=== PATIENT | male | born 1955 | race Caucasian/White ===

== ENCOUNTER → 2018-10-22 | Outpatient (CLI) | payer MEDICARE ==
--- NOTE | 2018-10-22 09:17 | US ---
EXAMINATION TYPE: US kidneys/renal and bladder DATE OF EXAM: 10/22/2018 COMPARISON: Lumbar MRI 12/25/2014 CLINICAL HISTORY: N28.9 DISORDER OF KIDNEY AND URETER. Renal failure, history of renal cysts EXAM MEASUREMENTS: Right Kidney: 11.5 x 5.8 x 5.1 cm Left Kidney: 11.3 x 6.3 x 6.2 cm Right Kidney: 2 exophytic cysts seen lateral mid pole with largest measuring 5.7 x 5.5 x 6.3cm Left Kidney: no hydronephrosis or renal masses seen Bladder: wnl Bilateral Jets seen: no Cystic foci are not clearly simple cystic by ultrasound criteria. This may be due to location. IMPRESSION: Cystic foci associated with the right kidney not clearly simple cystic, however, this may be due to t echnical factors as comparison with prior lumbar MRI suggests stable lesions, consider short interval ultrasound follow-up versus dedicated renal CT or MRI.
== END ==
LOC: RADUSWWP 07:53
PROVIDERS: ATTEND Family Medicine
DX: N28.9 Disorder of kidney and ureter, unspecified (principal)
CPT/HCPCS: 76770

== ENCOUNTER 2020-10-29 05:24 | Inpatient (IN) | payer MEDICARE ==
[2020-10-29] MEDS ORDERED: PANTOPRAZOLE 40 MG/10 ML VIAL IVP STA (05:57)
--- NOTE | 2020-10-29 06:03 | ED ---
General Adult HPI - General Chief complaint: GI Bleed Stated complaint: vomiting blood Time Seen by Provider: 10/29/20 05:40 Source: patient Mode of arrival: ambulatory - History of Present Illness Initial comments: This patient is a 65-year-old man who presents to be evaluated for headache and for vomiting blood. Patient states that for 2 days now he has had a severe headache that he states was combative at the base of his head posteriorly, but he was also having a pain in the retro-orbital area and the maxillary areas bilaterally. Patient states that the pain was severe, constant without worsening or relieving factors until this morning. Patient states that this morning he had some nausea and then vomited and then once she vomited the pain seemed to resolve. Patient stated that when he vomited there was blood, and he has had 5 episodes of vomiting with blood this morning. Onset/Timin -: days(s) Location: head Quality: aching, constant Consistency: constant Improves with: other Worsens with: none Associated Symptoms: headaches, nausea/vomiting Treatments Prior to Arrival: NSAID - Related Data Home Medications Medication Instructions Recorded Confirmed ALPRAZolam [Xanax] 0.25 mg PO BID PRN 07/13/14 01/09/15 Aspirin 81 mg PO DAILY 07/13/14 01/09/15 DULoxetine HCL [Cymbalta] 20 mg PO HS 07/13/14 01/09/15 Omeprazole [PriLOSEC] 20 mg PO AC-BRKFST 07/13/14 01/09/15 Tamsulosin HCl [Flomax] 0.4 mg PO BID 07/13/14 01/09/15 Testosterone Cypionate 0 mg IM Q14D 07/13/14 01/09/15 [Depo-Testosterone] lisinopriL [Zestril] 10 mg PO HS 07/13/14 01/09/15 metFORMIN HCL 500 mg PO DAILY 01/05/15 01/09/15 Prasterone (Dhea) [Dhea 25] 1 tab PO BID 01/09/15 01/09/15 Previous Rx's Medication Instructions Recorded Albuterol Inhaler (Mhu) [Ventolin 1 - 2 puff INHALATION Q4-6H PRN #1 07/13/14 Hfa Inhaler (Mhu)] inhaler Allergies Allergy/AdvReac Type Severity Reaction Status Date / Time No Known Allergies Allergy Verified 10/29/20 05:33 Review of Systems ROS Statement: Those systems with pertinent positive or pertinent negative responses have been documented in the HPI. ROS Other: All systems not noted in ROS Statement are negative. Constitutional: Denies: fever, chills, weakness Eyes: Reports: as per HPI, eye pain. Denies: vision change ENT: Reports: as per HPI, dental pain. Denies: ear pain, hearing loss, epistaxis Respiratory: Denies: cough, dyspnea, wheezes Cardiovascular: Denies: chest pain, palpitations Gastrointestinal: Reports: abdominal pain (Epigastric pain), nausea, vomiting. Denies: diarrhea, constipation Genitourinary: Denies: dysuria Musculoskeletal: Denies: back pain Skin: Denies: rash Neurological: Reports: as per HPI, headache. Denies: weakness, numbness, p aresthesias Hematological/Lymphatic: Denies: easy bleeding Past Medical History Past Medical History: GERD/Reflux, Hypertension Additional Past Medical History / Comment(s): CHRONIC BACK ISSUES History of Any Multi-Drug Resistant Organisms: None Reported Past Surgical History: Back Surgery, Bariatric Surgery, Orthopedic Surgery Additional Past Surgical History / Comment(s): LEFT ANKLE, LEFT HIP, LAP BAND AND REMOVAL,GASTRIC SLEEVE, LEFT KNEE ARTHROSCOPY Past Psychological History: Anxiety, Depression Smoking Status: Former smoker Past Alcohol Use History: None Reported Past Drug Use History: None Reported - Past Family History Father Additional Family Medical History / Comment(s): HEART PROBLEMS AT AGE 58 Mother Additional Family Medical History / Comment(s): AT AGE 82 Course Vital Signs 10/29/20 10/29/20 10/29/20 05:29 06:00 06:15 Temperature 97.5 F L Pulse Rate 70 134 H 121 H Respiratory 19 20 20 Rate Blood Pressure 94/65 79/61 92/64 O2 Sat by Pulse 96 96 94 L Oximetry 10/29/20 10/29/20 10/29/20 06:30 06:45 07:00 Temperature Pulse Rate 120 H 116 H 121 H Respiratory 20 20 20 Rate Blood Pressure 89/61 82/47 82/47 O2 Sat by Pulse 96 95 96 Oximetry 10/29/20 07:48 Temperature 98.2 F Pulse Rate Respiratory Rate Blood Pressure O2 Sat by Pulse Oximetry EKG Findings - EKG Results: EKG: interpreted by ERMD, sinus rhythm, normal axis, normal QRS, normal ST/T EKG shows: tachycardia (Rate 132 bpm) Medical Decision Making - Lab Data Result diagrams: 10/29/20 06:06 10/29/20 06:06 Lab Results 10/29/20 10/29/20 10/29/20 Range/Units 06:06 06:06 06:06 WBC 21.3 H (3.8-10.6) k/uL RBC 5.70 (4.30-5.90) m/uL Hgb 16.6 (13.0-17.5) gm/dL Hct 50.3 (39.0-53.0) % MCV 88.3 (80.0-100.0) fL MCH 29.1 (25.0-35.0) pg MCHC 33.0 (31.0-37.0) g/dL RDW 14.6 (11.5-15.5) % Plt Count 240 (150-450) k/uL MPV 9.0 Neutrophils % 84 % Lymphocytes % 9 % Monocytes % 5 % Eosinophils % 1 % Basophils % 1 % Neutrophils # 17.9 H (1.3-7.7) k/uL Lymphocytes # 1.9 (1.0-4.8) k/uL Monocytes # 1.1 H (0-1.0) k/uL Eosinophils # 0.2 (0-0.7) k/uL Basophils # 0.1 (0-0.2) k/uL PT 10.5 (9.0-12.0) sec INR 1.0 (<1.2) APTT 23.1 (22.0-30.0) sec Sodium 138 (137-145) mmol/L Potassium 3.8 (3.5-5.1) mmol/L Chloride 95 L (98-107) mmol/L Carbon Dioxide 30 (22-30) mmol/L Anion Gap 13 mmol/L BUN 54 H (9-20) mg/dL Creatinine 1.54 H (0.66-1.25) mg/dL Est GFR (CKD-EPI)AfAm 54 (>60 ml/min/1.73 sqM) Est GFR (CKD-EPI)NonAf 46 (>60 ml/min/1.73 sqM) Glucose 153 H (74-99) mg/dL Plasma Lactic Acid Rich (0.7-2.0) mmol/L Calcium 9.1 (8.4-10.2) mg/dL Total Bilirubin 0.5 (0.2-1.3) mg/dL AST 18 (17-59) U/L ALT 14 (4-49) U/L Alkaline Phosphatase 51 (38-126) U/L Troponin I (0.000-0.034) ng/mL Total Protein 6.4 (6.3-8.2) g/dL Albumin 3.8 (3.5-5.0) g/dL 10/29/20 10/29/20 Range/Units 06:06 06:06 WBC (3.8-10.6) k/uL RBC (4.30-5.90) m/uL Hgb (13.0-17.5) gm/dL Hct (39.0-53.0) % MCV (80.0-100.0) fL MCH (25.0-35.0) pg MCHC (31.0-37.0) g/dL RDW (11.5-15.5) % Plt Count (150-450) k/uL MPV Neutrophils % % Lymphocytes % % Monocytes % % Eosinophils % % Basophils % % Neutrophils # (1.3-7.7) k/uL Lymphocytes # (1.0-4.8) k/uL Monocytes # (0-1.0) k/uL Eosinophils # (0-0.7) k/uL Basophils # (0-0.2) k/uL PT (9.0-12.0) sec INR (<1.2) APTT (22.0-30.0) sec Sodium (137-145) mmol/L Potassium (3.5-5.1) mmol/L Chloride (98-107) mmol/L Carbon Dioxide (22-30) mmol/L Anion Gap mmol/L BUN (9-20) mg/dL Creatinine (0.66-1.25) mg/dL Est GFR (CKD-EPI)AfAm (>60 ml/min/1.73 sqM) Est GFR (CKD-EPI)NonAf (>60 ml/min/1.73 sqM) Glucose (74-99) mg/dL Plasma Lactic Acid Rich 3.3 H* (0.7-2.0) mmol/L Calcium (8.4-10.2) mg/dL Total Bilirubin (0.2-1.3) mg/dL AST (17-59) U/L ALT (4-49) U/L Alkaline Phosphatase (38-126) U/L Troponin I <0.012 (0.000-0.034) ng/mL Total Protein (6.3-8.2) g/dL Albumin (3.5-5.0) g/dL Disposition Clinical Impression: Gastrointestinal hemorrhage Disposition: ADMITTED IP TO THIS HOSP Condition: Serious Is patient prescribed a controlled substance at d/c from ED?: No Referrals: Joesph Loera MD [Primary Care Provider] - 1-2 days
[2020-10-29] MEDS ORDERED: SODIUM CHLORIDE 0.9% 500 ML 250 ML IV STA (06:11)
--- NOTE | 2020-10-29 06:33 | CT ---
EXAMINATION TYPE: CT brain wo con DATE OF EXAM: 10/29/2020 HISTORY: severe GASTON, went away after vomiting blood CT DLP: 1177 mGycm. Automated Exposure Control for Dose Reduction was Utilized. TECHNIQUE: CT scan of the head is performed without contrast. COMPARISON: None. FINDINGS: There is no acute intracranial hemorrhage or midline shift identified. There is mild to m oderate diffuse ventricular and sulcal prominence consistent with diffuse age-related cerebral atroph y. Some reticular asymmetry is noted. There is mild to moderate low-attenuation in the periventricul ar white matter consistent with chronic small vessel ischemic change. The globes are intact and the visualized sinuses are clear. Extensive surgical change to thoracolumbar spine noted on localizer. IMPRESSION: No acute intracranial hemorrhage or midline shift. There is mild to moderate diffuse ag e-related cerebral atrophy and chronic small vessel ischemic change noted.
[2020-10-29 06:38] LABS: Basophils # (A) 0.1 k/uL (0-0.2); Basophils % (A) 1 %; Eosinophils # (A) 0.2 k/uL (0-0.7); Eosinophils % (A) 1 %; HCT 50.3 % (39.0-53.0); HGB 16.6 gm/dL (13.0-17.5); Lymphocytes # (A) 1.9 k/uL (1.0-4.8); Lymphocytes % (A) 9 %; MCH 29.1 pg (25.0-35.0); MCV 88.3 fL (80.0-100.0); Monocytes # (A) 1.1 k/uL (0-1.0); Monocytes % (A) 5 %; Neutrophils # (A) 17.9 k/uL (1.3-7.7); Neutrophils % (A) 84 %; Platelet Count 240 k/uL (150-450); RDW 14.6 % (11.5-15.5); WBC 21.3 k/uL (3.8-10.6)
--- NOTE | 2020-10-29 06:46 | XR ---
EXAMINATION TYPE: XR chest 1V portable DATE OF EXAM: 10/29/2020 COMPARISON: Chest x-ray July 13, 2014 HISTORY: Severe chest pain since Thursday. TECHNIQUE: Single AP portable frontal upright view of the chest is obtained. FINDINGS: There is chronic right pleural changes without suspicious new focal air space opacity, ple ural effusion, or pneumothorax seen. The cardiac silhouette size is stable and upper limits of riccardo l. Surgical change of the thoracolumbar spine is redemonstrated. IMPRESSION: Chronic changes without acute pulmonary process.
[2020-10-29 06:51] LABS: Partial Thromboplastin Time 23.1 sec (22.0-30.0); Prothrombin Time 10.5 sec (9.0-12.0)
[2020-10-29 06:52] LABS: Albumin 3.8 g/dL (3.5-5.0); Calcium 9.1 mg/dL (8.4-10.2); Potassium 3.8 mmol/L (3.5-5.1); Total Bilirubin 0.5 mg/dL (0.2-1.3); Total Protein 6.4 g/dL (6.3-8.2)
--- NOTE | 2020-10-29 06:54 | CT ---
EXAMINATION TYPE: CT angio head neck DATE OF EXAM: 10/29/2020 HISTORY: severe GASTON, went away after vomiting blood COMPARISON: None. CT DLP: 927.9 mGycm. Automated Exposure Control for Dose Reduction was Utilized. TECHNIQUE: CTA scan of the head and neck are performed with IV Contrast, patient injected with 65 mL of Isovue 370, axial images are obtained, coronal and sagittal reformatted images are reviewed. Thre e-D reconstructed images are created on an independent workstation and reviewed. FINDINGS: Carotid/Vascular Structures: Bovine-type arch. Normal origin right common carotid artery from right b rachiocephalic artery . Mild calcified plaque at origin. No significant plaque or stenosis in common or internal carotid arteries bilaterally. No significant plaque or stenosis at the carotid bulb level . Patent external carotid arteries bilaterally without significant plaque or stenosis. Codominant vertebrobasilar system filling basilar artery. No significant plaque or stenosis. Patent r ight posterior communicating artery. Hypoplastic left posterior indicating artery. No significant shanique que or stenosis. Likely small caliber but patent anterior communicating artery. No significant plaque or stenosis. Other: Dilated main pulmonary artery of 3.2 cm, CT findings consistent with underlying pulmonary negro ry hypertension. Long segment fusion hardware in the thoracic spine noted. IMPRESSION: No significant stenosis in common or internal carotid arteries bilaterally. No significa nt stenosis or aneurysm at level point lay [place] of [place].
--- NOTE | 2020-10-29 07:24 | CT ---
EXAMINATION TYPE: CT abdomen pelvis w con DATE OF EXAM: 10/29/2020 COMPARISON: None. HISTORY: Epigastric pain, went away after vomiting blood CT DLP: 2195.5 mGycm, Automated Exposure Control for Dose Reduction was Utilized. CONTRAST: CT scan of the abdomen and pelvis is performed without oral but with IV Contrast, patient injected wi th 65 mL of Isovue 370. FINDINGS: LUNG BASES: Heart size mildly enlarged.. LIVER/GB: Gallbladder has distended margins and is dilated without surrounding fat stranding. Finding may be products of fasting state. PANCREAS: No significant abnormality is seen. SPLEEN: No significant abnormality is seen. ADRENALS: No significant abnormality is seen. KIDNEYS: There are thin-walled exophytic simple cysts from the upper to mid pole right kidney posteri julio. No excretion seen but no hydronephrosis noted bilaterally. Symmetric cortical medullary uptake noted. BOWEL: Suboptimal evaluation of bowel without enteric contrast. Surgical changes from gastric sleeve procedure. Moderate size hiatal hernia with moderate concentric wall thickening distal esophagus. Cor relate clinically. Consider follow-up direct visualization to rule out distal esophageal neoplasm. No suspicious small or large bowel dilatation. PROSTATE/SEMINAL VESICLES: Enlarged prostate consistent with BPH. Surgical clips anterior aspect of p rostate likely between inferior bladder and prostate. LYMPH NODES: No greater than 1cm abdominal or pelvic lymph nodes are appreciated. OSSEOUS STRUCTURES: Metallic hardware from left hip arthroplasty causes streak artifact limiting eval uation of pelvic structures. There is surgical change to lower lumbar spine L3-L5 levels. Grade 1 ant erolisthesis L4 on L5. Grade 1 retrolisthesis L2 on L3. Extensive surgical change to the thoracic spi ne. Long segment fusion hardware. Underlying scoliotic curvature. OTHER: Moderate-sized fat-containing bilateral inguinal hernias. Small amount of left scrotal fluid. IMPRESSION: No bowel obstruction. No acute findings are evident. Nonemergent follow-up distal esophag us.
[2020-10-29] MEDS ORDERED: SODIUM CHLORIDE 0.9% 1,000 ML IV STA (07:42)
[2020-10-29] MEDS ORDERED: SODIUM CHLORIDE 0.9% 500 ML 500 ML IV STA (07:42)
[2020-10-29] MEDS ORDERED: MORPHINE SULFATE 4 MG/ML SYRINGE IV PRN (07:49)
[2020-10-29] MEDS ORDERED: ONDANSETRON 4 MG/2 ML VIAL IVP PRN (07:49)
[2020-10-29] MEDS ORDERED: NALOXONE 0.4 MG/ML 1 ML VIAL IV PRN (07:49)
[2020-10-29 08:37] LABS: HCT 44.7 % (39.0-53.0); HGB 15.3 gm/dL (13.0-17.5); MCH 30.1 pg (25.0-35.0); MCHC 34.2 g/dL (31.0-37.0); MCV 88.1 fL (80.0-100.0); Mean Platelet Volume 9.3; Platelet Count 241 k/uL (150-450); RBC 5.07 m/uL (4.30-5.90); RDW 14.7 % (11.5-15.5); WBC 18.5 k/uL (3.8-10.6)
[2020-10-29] MEDS ORDERED: PANTOPRAZOLE 40 MG/10 ML VIAL IV SCH (09:00)
[2020-10-29] MEDS ORDERED: SODIUM CHLORIDE 0.9% 1,000 ML IV ONE (09:12)
[2020-10-29] MEDS ORDERED: IV FLUID CONTINUATION 1,000 ML IV ONE ×2 (09:29→10:08)
[2020-10-29] MEDS ORDERED: PHENYLEPHRINE-0.9% NACL SYG 1,000 MCG/10 ML SYRINGE ONE (09:35)
[2020-10-29] MEDS ORDERED: PROPOFOL 10 MG/ML 20 ML VIAL IV ONE (09:35)
--- NOTE | 2020-10-29 10:37 | P.PCN ---
Date of Procedure: 10/29/20 Procedure(s) Performed: BRIEF HISTORY: Patient is a 65-year-old, pleasant, male in the hospital with multiple episodes of hematemesis since 8 PM last night. He had at least 5 episodes since being in the ER with approximately 100-200 mL of fresh blood with clots. History of gastric 60 surgery in the past. Patient has been taking Motrin on a regular basis for chronic back pain and severe headaches. He is complaining of some epigastric discomfort. CT angiography was negative. He scheduled for an emergent upper endoscopy in the emergency room PROCEDURE PERFORMED: Esophagogastroduodenoscopy with injection epinephrine and Endo Clip placement PREOPERATIVE DIAGNOSIS: Acute upper GI bleed. IV sedation per anesthesia. PROCEDURE: After informed consent was obtained, the patient was brought into the endoscopy unit. IV sedation was administered by Anesthesia under continuous monitoring. Initially the Olympus GIF-140 video therapeutic endoscope was inserted into the mouth. Esophagus intubated without any difficulty. It was gradually advanced into the stomach and duodenum and carefully examined. There were large clots noted in the stomach and in the bulb of the duodenum that was thoroughly irrigated. The bulb and the second part of the duodenum appeared normal. The scope at this time was withdrawn to the stomach, adequately insufflated with air, and upon careful examination, mucosa of the antrum appeared normal. There was evidence of gastric sleeve surgery noted and the patient as well as the gastric body appeared normal. He was a moderate size hiatal hernia noted. The scope was then withdrawn into the esophagus. GE junction was located at 35 cm from the incisors. There was some fresh blood noted in the distal esophagus where there was a large circumferential ulceration identified with a clot noted. There is an actively oozing noted underneath the clot. Irrigation was performed. A small visible vessel was noted at the clock position and this time 10 mL of 1 in 10,000 injection epinephrine was injected and hemostasis was achieved. 70 2 endoclips were placed on the visible vessel and adequate hemostasis was achieved . The rest of esophagus appeared normal and the patient tolerated the procedure IMPRESSION: 1. Large circumferential ulceration the distal esophagus at 25 cm from the incisors with a visible vessel and a large clot with active bleeding status post injection epinephrine followed by Endo Clip placement with good hemostasis. 2. Moderate size hiatal hernia. 3. Evidence of gastric sleeve surgery RECOMMENDATIONS: The findings of this examination were discussed with the patient as well as his family. At this time he will be continued on IV Protonix 40 mg every 12 hours. NG tube is in place. CBC every 6 hours. Continue fluid resuscitation..
--- NOTE | 2020-10-29 11:11 | CONS ---
CONSULTATION DATE OF DICTATION: 10/29/2020 REASON FOR CONSULTATION: Acute upper gastrointestinal bleed. HISTORY OF PRESENT ILLNESS: The patient is a 65-year-old pleasant white male came to the emergency room complaining of 3 episodes of hematemesis that started at 8 p.m. last night. The patient says that he had some headache and chronic back pain. He has been taking Motrin on a regular basis. Yesterday morning he episode of black tarry stools. Subsequently yesterday evening he had an episode of hematemesis and he threw up about 200 mL of bright red blood. Subsequently he had a couple more episodes through the night and he came to the emergency room early this morning at 5 o'clock after having another 5 episodes of bright red hematemesis. He denies any chest pain. He has been having some indigestion and chest discomfort for the last 2 weeks duration. No prior history of peptic ulcer disease. He takes Motrin on a regular basis. He has prior history of gastric sleeve surgery several years ago. His initial hemoglobin was 16 subsequently dropped to 15 g/dL. The patient is not on any anticoagulation other than aspirin. PAST MEDICAL HISTORY: Significant for hypertension, hyperlipidemia, gastroesophageal reflux disease, anxiety, depression, and diabetes mellitus. MEDICATIONS: Medications at home include Xanax, aspirin, Cymbalta, Prilosec, Flomax, Depo- Testosterone, Zestril, metformin, and DHEA. ALLERGIES: None. PAST SURGICAL HISTORY: Gastric sleeve surgery, back surgery, knee arthroplasty. FAMILY HISTORY: Father coronary artery disease and mother at age 82. REVIEW OF SYSTEMS: CARDIOPULMONARY: He denies any chest pain or shortness of breath, GENITOURINARY: No dysuria or hematuria. MUSCULOSKELETAL: Unremarkable other than severe chronic back pain. NEUROLOGY: Unremarkable. Does complain of chronic headaches. ENT/VISION: Unremarkable. CONSTITUTIONAL: No recent weight loss. No fever, chills, night sweats. HEMATOLOGY: Unremarkable. PSYCHIATRIC: Unremarkable other than anxiety, depression. CONSTITUTIONAL: No recent weight loss. PHYSICAL EXAMINATION: He appears comfortable, but is hemodynamically unstable. Pulse rate is 134, blood pressure 94/65 and afebrile. HEENT EXAMINATION: Unremarkable. Conjunctivae pink. Sclerae anicteric. Oral cavity no lesions. NECK: No JVD or lymph node enlargement. CHEST: Was clear to auscultation. HEART: Regular rate and rhythm. ABDOMEN: Soft. Bowel sounds are positive. No organomegaly. EXTREMITIES: No pedal edema. NEURO: He is alert and oriented x3. No focal deficits. The patient did have a CTA done in the ER which was unremarkable. He also had an abdominal CT scan that showed evidence of hiatal hernia, otherwise it was unremarkable. LABS: At the time of admission to the the hospital, WBC 21.3, hemoglobin 16 and dropped to 15.3, platelets normal. PT/INR is within normal limits. BUN is 54, creatinine 1.54. Plasma lactic acid was 3.3. AST, ALT, T-bilirubin and alkaline phosphatase are within normal limits. IMPRESSION: 1. Acute upper gastrointestinal bleed with several episodes of hematemesis since 8 p.m. last night. Patient presently hemodynamically stable with tachycardia and hypertension being resuscitated with fluids. Hemoglobin was 16 dropped to 15 g/dL. He has been taking Motrin on a regular basis for chronic back pain and severe headaches. Rule out peptic ulcer disease. 2. History of gastric sleeve surgery. 3. Hypertension. 4. Hyperlipidemia. 5. History of diabetes mellitus. RECOMMENDATIONS: 1. Continue with fluid resuscitation. 2. IV Protonix 40 mg q.12 hours. 3. CBC every 6 hours and transfuse if needed. 4. We will proceed with an emergency upper endoscopy at the bedside. I had a lengthy discussion with the patient as well as his daughter who is at the bedside about the risks, benefits and complications. Thank you for this consultation. FATOUMATA / ALEXANDERN: [id number] /
--- NOTE | 2020-10-29 11:31 | XR ---
EXAMINATION TYPE: XR chest 1V portable DATE OF EXAM: 10/29/2020 CLINICAL HISTORY: NG tube placement . TECHNIQUE: Single AP portable frontal view of the chest is obtained. COMPARISON: Chest x-ray and CT abdomen and pelvis from earlier today FINDINGS: Metallic hardware from a long segment fusion in the thoracic spine redemonstrated. New dimas ogastric tube cannot be clearly seen below diaphragm likely coiled in hiatal hernia. Surgical change s from gastric sleeve noted on recent CT. There is hiatal hernia with suspicious distal esophageal wa ll thickening noted. Follow-up advised. Lungs remain clear. Cardiac silhouette size is stable and upper limits of normal. IMPRESSION: As above
[2020-10-29] MEDS: HYDROmorphone 0.5 MG/0.5 ML SYRINGE IVP PRN ×3 (13:32→22:16)
[2020-10-29 15:56] LABS: HCT 40.3 % (39.0-53.0); HGB 12.8 gm/dL (13.0-17.5); MCH 28.6 pg (25.0-35.0); MCHC 31.7 g/dL (31.0-37.0); MCV 90.1 fL (80.0-100.0); Platelet Count 219 k/uL (150-450); RBC 4.47 m/uL (4.30-5.90); RDW 15.2 % (11.5-15.5); WBC 19.3 k/uL (3.8-10.6)
[2020-10-29] MEDS ORDERED: DIAZEPAM 5 MG/ML 2 ML INJ IVP ONE (21:00)
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
[2020-10-29 22:00] LABS: HCT 38.1 % (39.0-53.0); HGB 11.9 gm/dL (13.0-17.5); MCH 28.2 pg (25.0-35.0); MCHC 31.3 g/dL (31.0-37.0); MCV 90.1 fL (80.0-100.0); Mean Platelet Volume 8.9; Platelet Count 193 k/uL (150-450); RBC 4.23 m/uL (4.30-5.90); RDW 15.3 % (11.5-15.5)
[2020-10-29] MEDS: PANTOPRAZOLE 40 MG/10 ML VIAL IV SCH (22:16)
[2020-10-29] MEDS ORDERED: diazePAM 2 MG TAB PO STA (23:18)
[2020-10-30 00:11] LABS: HCT 33.8 % (39.0-53.0); HGB 11.7 gm/dL (13.0-17.5); MCH 30.3 pg (25.0-35.0); MCHC 34.6 g/dL (31.0-37.0); MCV 87.7 fL (80.0-100.0); Platelet Count 180 k/uL (150-450); RBC 3.86 m/uL (4.30-5.90); WBC 15.7 k/uL (3.8-10.6)
[2020-10-30 08:01] LABS: HCT 33.6 % (39.0-53.0); HGB 11.3 gm/dL (13.0-17.5); MCH 29.8 pg (25.0-35.0); MCHC 33.7 g/dL (31.0-37.0); MCV 88.6 fL (80.0-100.0); Mean Platelet Volume 8.8; Platelet Count 162 k/uL (150-450); RBC 3.79 m/uL (4.30-5.90); RDW 14.9 % (11.5-15.5); WBC 12.6 k/uL (3.8-10.6)
[2020-10-30 08:05] LABS: Calcium 8.6 mg/dL (8.4-10.2); Potassium 3.2 mmol/L (3.5-5.1)
[2020-10-30] MEDS ORDERED: BUTALB/APAP/CAFF 50-325-40MG TAB PO PRN (08:53)
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
[2020-10-30] MEDS ORDERED: POTASSIUM CHLORIDE ER 20 MEQ TAB.ER PO STA (10:54)
[2020-10-30] MEDS: PANTOPRAZOLE 40 MG/10 ML VIAL IV SCH ×2 (11:40→21:13)
--- NOTE | 2020-10-30 11:52 | P.PN ---
Subjective Progress Note Date: 10/30/20 Principal diagnosis: Acute upper gastrointestinal bleed Since 65-year-old pleasant white male who came to the emergency room complaining of 3 episodes of hematemesis that started 8 PM Thursday evening. The patient sitting on his severe headache and chronic back pain. He has been taking significant amounts of Motrin on a regular basis. Thursday morning he noticed black tarry stools and subsequently yesterday was having several episodes of hematemesis with up to approximately 200, also bright red blood. Yesterday he underwent an upper endoscopy which revealed a large circumferential ulceration in the distal esophagus at 25 cm from the incisors with a visible vessel and lar ge clot with active bleeding status post injection of epinephrine and Endo Clip placement. Moderate size hiatal hernia and evidence of gastric sleeve surgery. He also had an NG tube placed which was removed yesterday evening he stated approximately at 10:00. He is currently denying any abdominal pain, he has had no further episodes of emesis, no further bowel movements and is tolerating full liquid diet. Hemoglobin is stable at 11.3 Objective - Vital Signs Vital signs: Vital Signs Temp 97.5 F L 10/30/20 08:00 Pulse 95 10/30/20 08:00 Resp 16 10/30/20 08:00 BP 99/53 10/30/20 08:00 Pulse Ox 95 10/30/20 08:00 Intake & Output 10/29/20 10/30/20 10/30/20 18:59 06:59 18:59 Intake Total 300 207 Balance 300 207 Weight 97 kg Intake: IV 300 Oral 207 Other: Voiding Method Toilet # Voids 2 # Bowel Movements 0 - Exam General appearance: The patient is alert, oriented, appears in no acute distress. HET: Head is normocephalic and atraumatic. Conjunctiva pink. Sclera anicteric. Neck: Supple without lymphadenopathy. Abdomen: Soft, nontender, nondistended with bowel sounds. No guarding or rig idity. Extremities: Normal skin color and turgor. No pedal edema Skin: No rashes, no jaundice Neurological: No focal deficits. Alert and oriented 3. - Labs CBC & Chem 7: 10/30/20 06:41 10/30/20 06:41 Labs: Abnormal Lab Results - Last 24 Hours (Table) 10/29/20 10/29/20 10/29/20 Range/Units 15:20 21:22 23:48 WBC 19.3 H 17.0 H 15.7 H (3.8-10.6) k/uL RBC 4.23 L 3.86 L (4.30-5.90) m/uL Hgb 12.8 L 11.9 L 11.7 L (13.0-17.5) gm/dL Hct 38.1 L 33.8 L (39.0-53.0) % Potassium (3.5-5.1) mmol/L Carbon Dioxide (22-30) mmol/L BUN (9-20) mg/dL Creatinine (0.66-1.25) mg/dL 10/30/20 10/30/20 Range/Units 06:41 06:41 WBC 12.6 H (3.8-10.6) k/uL RBC 3.79 L (4.30-5.90) m/uL Hgb 11.3 L (13.0-17.5) gm/dL Hct 33.6 L (39.0-53.0) % Potassium 3.2 L (3.5-5.1) mmol/L Carbon Dioxide 34 H (22-30) mmol/L BUN 48 H (9-20) mg/dL Creatinine 1.30 H (0.66-1.25) mg/dL Assessment and Plan (1) Acute upper gastrointestinal bleeding Narrative/Plan: This is a gentleman who presented to the emergency department with an acute upper gastrointestinal bleed with several episodes of hematemesis since 8 PM Thursday evening. The patient presented hemodynamically stable with tachycardia in height hypotension that was being resuscitated with fluids. Hemoglobin was 16 intraoperative 15 initially, today is 11.3. The patient has been taking Motrin on a regular basis for chronic back pain and severe headaches. He underwent an upper endoscopy yesterday which revealed a large circumferential ulceration in the distal esophagus at 25 cm from the incisors with a visible ve ssel and large clot with active bleeding status post injection of epinephrine and Endo Clip placement. Moderate size hiatal hernia and evidence of gastric sleeve surgery. Current Visit: Yes Status: Acute Code(s): K92.2 - GASTROINTESTINAL HEMORRHAGE, UNSPECIFIED SNOMED Code(s): 58043704 Plan: 1. Continue symptomatic and supportive care 2. Continue full liquid diet 3. Continue to monitor H&H 4. Continue to monitor for signs of GI bleed 5. The patient will need follow-up with gastroenterology for repeat upper endoscopy to evaluate healing of ulcer in 4-6 weeks 6. Continue Protonix 40 mg twice a day Thank you for this consultation, we will continue to follow. Dr. Aren Funez I agree with the dictator's note, documented as a scribe by Zee Zavala.
[2020-10-30 13:53] VITALS: BMI 29.0
[2020-10-30] MEDS ORDERED: BENZOCAINE/MENTHOL LOZENG 1 EACH LOZENGE MUCOUS MEM PRN (14:29)
[2020-10-30] MEDS ORDERED: ALPRAZolam 0.25 MG TAB PO PRN (15:37)
[2020-10-30] MEDS ORDERED: HYDROcodone/APAP 10-325MG 1 EACH TAB PO PRN (15:37)
[2020-10-30] MEDS: methocarbamoL 750 MG TAB PO SCH ×2 (16:31→23:47)
[2020-10-30] MEDS: LEVOTHYROXINE 100 MCG TAB PO SCH (16:31)
--- NOTE | 2020-10-30 16:34 | MR ---
EXAMINATION TYPE: MR brain wo/w con DATE OF EXAM: 10/30/2020 COMPARISON: CT brain 10/29/2020 HISTORY: Severe headaches TECHNIQUE: Multiplanar, multisequence images of the brain and brainstem is performed without and with IV contras t, utilizing 9.5 mL intravenous Gadavist . FINDINGS: Diffusion weighted images demonstrate no evidence of a recent infarct or other diffusion ab normality. There is no extra-axial fluid.. Periventricular confluent and scattered hyperintensities are present and inversion recovery T2-weighted sequences, approximately 50 lesions are present. 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 The brain volume is age appropriate. Midline structures demonstrate normal morphology. The craniocervical junction appears within normal limits. Post contrast images demonstrate no abnormal enhancement. The dural venous sinuses appear pa tent. The visualized sinuses are remarkable for mucoperiosteal thickening in the maxillary sinuses, e thmoid air cells and the globes are intact. IMPRESSION: Nonspecific white matter demyelination. No restricted diffusion to suggest subacute ische sagar.
[2020-10-30] MEDS ORDERED: TAMSULOSIN 0.4 MG CAP.ER.24H PO SCH (21:00)
[2020-10-30] MEDS: DULoxetine HCL 60 MG CAPSULE.DR PO SCH (21:13)
[2020-10-30] MEDS: HYDROmorphone 0.5 MG/0.5 ML SYRINGE IVP PRN (21:13)
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
[2020-10-31 03:46] VITALS: RESP 18
[2020-10-31 06:07] LABS: Glucose,Whole Blood 99 mg/dL (75-99)
[2020-10-31] MEDS: LEVOTHYROXINE 100 MCG TAB PO SCH (06:15)
[2020-10-31] MEDS ORDERED: NON FORMULARY DRUG (Sildenafil Citrate [Sildenafil Citrate] 100 MG Tablet) PO SCH (07:30)
[2020-10-31] MEDS ORDERED: LEVOTHYROXINE IVP 100 MCG/5 ML VIAL IV SCH (09:00)
[2020-10-31 09:50] LABS: HCT 30.1 % (39.0-53.0); HGB 10.3 gm/dL (13.0-17.5); MCH 30.3 pg (25.0-35.0); MCHC 34.3 g/dL (31.0-37.0); MCV 88.4 fL (80.0-100.0); Mean Platelet Volume 8.8; Platelet Count 150 k/uL (150-450); RDW 15.1 % (11.5-15.5)
[2020-10-31] MEDS: DULoxetine HCL 60 MG CAPSULE.DR PO SCH (09:51)
[2020-10-31] MEDS: PANTOPRAZOLE 40 MG/10 ML VIAL IV SCH (09:51)
[2020-10-31] MEDS: methocarbamoL 750 MG TAB PO SCH (09:52)
[2020-10-31 10:00] LABS: Calcium 8.9 mg/dL (8.4-10.2); Potassium 3.8 mmol/L (3.5-5.1)
--- NOTE | 2020-10-31 11:16 | CDI ---
Documentation Clarification Form Date: 10/31/2020 11:05:20 AM From: Avril Rust CCS, CCDS Admit Date: 10/29/2020 07:51:00 AM Patient Name: Jose Krause Visit Number: [id number] Discharge Date: ATTENTION: The Clinical Documentation Specialists (CDI) and [facility] Coding Staff appreciate your assistance in clarifying documentation. Please respond to the clarification below the line at the bottom and electronically sign. The CDI & [facility] Coding staff will review the response and follow-up if needed. Please note: Queries are made part of the Legal Health Record. If you have any questions, please contact the author of this message via ITS. Dr. Dada Khan: There is documentation of tachycardia, hypotension and the need for fluid resuscitation. Additional clarification is requested. History/Risk Factors per the 10/29 History & Physical: GERD, Hypertension, Chronic back pain, Headaches, Anxiety, Depression, Former smoker, Back Surgery, Bariatric Surgery. Clinical Indicators: Per the 10/29 ED: Presented for evaluation of vomiting blood and headaches x2 days with nausea. ED Clinical Impression: Gastrointestinal Hemorrhage 10/29 VS: T 97.5, P 70 - 134, R 19 - 20, BP 94/65 - 79/61; PO 96 RA, BMI: 29.5 10/29 LAB: WBC 21.3, Neut 17.9, [place] 1.1, Cl 95, BUN 54, Cr 1.54, Glucose 153, Lactic Acid 3.3. Treatment 10/29: IV Protonix, IV fluid 250 mls @ 1,000 mls/hr q15M, IV fluid 500 mls @ 1000 mls/hr q30M, IV fluid 1,000 mls @ 130 mls/hr q7H, IV Dilaudi 0.5 mg q3H, IV Zofran, IV fluid 1,000 mls @ 999 mls/hr q1H, IV Protonix. Typed & Crossed for possible transfusion. Can you please further clarify any condition(s) related to the above findings: [ ] Dehydration [ ] Acute Kidney Failure [ ] Other, please specify [ ] Unable to determine (Template Last Revised: September 2020) Unable to determine MTDD
[2020-10-31 12:00] VITALS: BP 95/49; PULSE 75; TEMP 96
--- NOTE | 2020-10-31 13:55 | P.PN ---
Subjective Progress Note Date: 10/31/20 Principal diagnosis: Acute upper gastrointestinal bleed Since 65-year-old pleasant white male who came to the emergency room complaining of 3 episodes of hematemesis that started 8 PM Thursday evening. The patient sitting on his severe headache and chronic back pain. He has been taking significant amounts of Motrin on a regular basis. Thursday morning he noticed black tarry stools and subsequently yesterday was having several episodes of hematemesis with up to approximately 200, also bright red blood. Yesterday he underwent an upper endoscopy which revealed a large circumferential ulceration in the distal esophagus at 25 cm from the incisors with a visible vessel and lar ge clot with active bleeding status post injection of epinephrine and Endo Clip placement. Moderate size hiatal hernia and evidence of gastric sleeve surgery. He is currently denying any abdominal pain, he has had no further episodes of emesis, reports having a black bowel movement this morning, and is tolerating full liquid diet. Objective - Vital Signs Vital signs: Vital Signs Temp 98 F 10/31/20 08:00 Pulse 74 10/31/20 08:00 Resp 18 10/31/20 08:00 BP 94/54 10/31/20 08:00 Pulse Ox 95 10/31/20 08:00 Intake & Output 10/30/20 10/31/20 10/31/20 18:59 06:59 18:59 Intake Total 982 118 Balance 982 118 Weight 97 kg 98.5 kg Intake: Oral 982 118 Other: Voiding Method Toilet Toilet # Voids 1 1 # Bowel Movements 0 - Exam General appearance: The patient is alert, oriented, appears in no acute distress. HET: Head is normocephalic and atraumatic. Conjunctiva pink. Sclera anicteric. Neck: Supple without lymphadenopathy. Abdomen: Soft, nontender, nondistended with bowel sounds. No guarding or rigidity. Extremities: Normal skin color and turgor. No pedal edema Skin: No rashes, no jaundice Neurological: No focal deficits. Alert and oriented 3. - Labs CBC & Chem 7: 10/31/20 09:06 10/31/20 09:06 Assessment and Plan (1) Acute upper gastrointestinal bleeding Narrative/Plan: This is a gentleman who presented to the emergency department with an acute upper gastrointestinal bleed with several episodes of hematemesis since 8 PM Thursday evening. The patient presented hemodynamically stable with tachycardia in height hypotension that was being resuscitated with fluids. Hemoglobin was 16 intraoperative 15 initially, today is 11.3. The patient has been taking Motrin on a regular basis for chronic back pain and severe headaches. He underwent an upper endoscopy yesterday which revealed a large circumferential ulceration in the distal esophagus at 25 cm from the incisors with a visible vessel and large clot with active bleeding status post injection of epinephrine and Endo Clip placement. Moderate size hiatal hernia and evidence of gastric sleeve surgery. Current Visit: Yes Status: Acute Code(s): K92.2 - GASTROINTESTINAL HEMORRHAGE, UNSPECIFIED SNOMED Code(s): 56770224 Plan: 1. Continue symptomatic and supportive care 2. Advance to low fiber diet 3. Continue to monitor H&H 4. Continue to monitor for signs of GI bleed 5. The patient will need follow-up with gastroenterology for repeat upper endoscopy to evaluate healing of ulcer in 4-6 weeks 6. Continue Protonix 40 mg twice a day Thank you for this consultation, he may be discharged home from a gastroenterology standpoint. Dr. Aren Funez I agree with the dictator's note, documented as a scribe by Zee Zavala.
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
[2020-11-02] MEDS ORDERED: TESTOSTERONE CYPIONATE 200 MG/ML 1ML VIAL IM SCH (09:00)
== END 2020-10-31 14:43 | disposition home or self-care (01) | DRG 381 ==
LOC: EC 05:24 → 3SCARD 07:51
PROVIDERS: ADMIT Hospitalist; ATTEND Hospitalist
PROC: 0W3P8ZZ Control Bleeding in Gastrointestinal Tract, Via Natural or Artificial Opening Endoscopic (ICD-10-PCS; principal; 2020-10-29 07:30)
PROC: 3E0G8GC Introduction of Other Therapeutic Substance into Upper GI, Via Natural or Artificial Opening Endoscopic (ICD-10-PCS; principal; 2020-10-29 07:30)
DX: K22.11 Ulcer of esophagus with bleeding (principal); D62 Acute posthemorrhagic anemia; K21.9 Gastro-esophageal reflux disease without esophagitis; I10 Essential (primary) hypertension; F41.9 Anxiety disorder, unspecified; F32.9 Major depressive disorder, single episode, unspecified; E03.9 Hypothyroidism, unspecified; N40.0 Benign prostatic hyperplasia without lower urinary tract symptoms; G89.29 Other chronic pain; M54.9 Dorsalgia, unspecified; E11.9 Type 2 diabetes mellitus without complications; E78.5 Hyperlipidemia, unspecified; K46.9 Unspecified abdominal hernia without obstruction or gangrene; T39.395A Adverse effect of other nonsteroidal anti-inflammatory drugs [NSAID], initial encounter; Z20.822 Contact with and (suspected) exposure to COVID-19; Z96.659 Presence of unspecified artificial knee joint; I95.9 Hypotension, unspecified; Z79.84 Long term (current) use of oral hypoglycemic drugs; Z79.82 Long term (current) use of aspirin; Z79.899 Other long term (current) drug therapy; Z87.891 Personal history of nicotine dependence; Z98.84 Bariatric surgery status; Z98.890 Other specified postprocedural states; Z82.49 Family history of ischemic heart disease and other diseases of the circulatory system; Z79.890 Hormone replacement therapy
CPT/HCPCS: 36415; 43243; 43255; 70450; 70496; 70498; 70553; 71045; 74177; 80048; 80053; 83605; 84484; 85025; 85027; 85610; 85730; 86850; 86900; 86901; 87635; 93005; 96374; 99285

== ENCOUNTER 2020-11-29 09:08 | Inpatient (IN) | payer MEDICARE ==
[2020-11-29 09:26] LABS: Glucose,Whole Blood 90 mg/dL (75-99)
[2020-11-29] MEDS ORDERED: Acetaminophen-Codeine 300-30mg TAB PO STA (09:29)
[2020-11-29] MEDS ORDERED: diphenhydrAMINE 50 MG/ML 1 ML VIAL IVP STA (09:29)
[2020-11-29 09:48] LABS: Anisocytosis Slight; Basophils % (A) 0 %; Eosinophils # (A) 0.2 k/uL (0-0.7); Eosinophils % (A) 2 %; HCT 34.9 % (39.0-53.0); HGB 11.3 gm/dL (13.0-17.5); Hypochromasia Slight; Lymphocytes # (A) 1.6 k/uL (1.0-4.8); Lymphocytes % (A) 13 %; MCH 28.4 pg (25.0-35.0); MCHC 32.2 g/dL (31.0-37.0); Mean Platelet Volume 8.9; Monocytes # (A) 0.7 k/uL (0-1.0); Monocytes % (A) 6 %; Neutrophils # (A) 9.7 k/uL (1.3-7.7); Neutrophils % (A) 79 %; Platelet Count 293 k/uL (150-450); RBC 3.97 m/uL (4.30-5.90); WBC 12.2 k/uL (3.8-10.6)
[2020-11-29 09:54] LABS: Appearance,Urine Clear (Clear); Bilirubin,Urine Negative (Negative); Blood,Urine Negative (Negative); Color,Urine Light Yellow; Glucose,Urine (UA) 1+ (Negative); Ketones,Urine Negative (Negative); Leukocyte Esterase,Urine Negative (Negative); Nitrite,Urine Negative (Negative); Protein,Urine Negative (Negative); Specific Gravity,Urine 1.015 (1.001-1.035); Urobilinogen,Urine <2.0 mg/dL (<2.0)
--- NOTE | 2020-11-29 09:55 | ED ---
General Adult HPI - General Source: patient, RN notes reviewed Mode of arrival: ambulatory Limitations: no limitations <Crow Mcclellan - Last Filed: 11/29/20 10:26> <Pauly Fox - Last Filed: 12/08/20 17:17> - General Chief complaint: Recheck/Abnormal Lab/Rx Stated complaint: Abn Labs, sent by pcp Time Seen by Provider: 11/29/20 09:18 - History of Present Illness Initial comments: This a 65-year-old male presents emergency Department chief complaint of abnormal labs. Patient states he received a phone call stating that his labs were abnormal he needs go to the emergency department. He is unsure what his abnormal lab work drawn 2 days ago. Patient has no specific complaints at this time. Patient states that he has had kidneys and which she is scheduled see nephrology, patient states his heart rates been elevated recently scheduled for echocardiogram, cardiology evaluation. He has no place chest pain shortness of breath. Patient suffers with chronic headaches after a fall, prior closed head injury. Patient denies any abdominal plain, nausea vomiting. He has suffered with without with initially down infection but he has now had some thrush. Patient also scheduled for upper GI (Crow Mcclellan) - Related Data Home Medications Medication Instructions Recorded Confirmed Tamsulosin HCl [Flomax] 0.8 mg PO HS 07/13/14 12/04/20 Canagliflozin [Invokana] 100 mg PO AC-BRKFST 10/29/20 12/04/20 DULoxetine HCL [Cymbalta] 60 mg PO BID 10/29/20 12/04/20 Levothyroxine Sodium 200 mcg PO DAILY 10/29/20 12/04/20 Liraglutide [Victoza 2-Silvano] 0.6 mg SQ DAILY 10/29/20 12/04/20 Testosterone Cypionate 120 mg IM FR 10/29/20 12/04/20 [Depo-Testosterone] ALPRAZolam [Xanax] 0.25 mg PO BID PRN 11/29/20 12/04/20 Allergies Allergy/AdvReac Type Severity Reaction Status Date / Time No Known Allergies Allergy Verified 12/07/20 12:27 Review of Systems ROS Other: All systems not noted in ROS Statement are negative. <Crow Mcclellan - Last Filed: 11/29/20 10:26> ROS Other: All systems not noted in ROS Statement are negative. <Pauly Fox A - Last Filed: 12/08/20 17:17> ROS Statement: Those systems with pertinent positive or pertinent negative responses have been documented in the HPI. Past Medical History Past Medical History: GERD/Reflux, Hypertension Additional Past Medical History / Comment(s): CHRONIC BACK ISSUES History of Any Multi-Drug Resistant Organisms: None Reported Past Surgical History: Back Surgery, Bariatric Surgery, Orthopedic Surgery Additional Past Surgical History / Comment(s): LEFT ANKLE, LEFT HIP, LAP BAND A ND REMOVAL,GASTRIC SLEEVE, LEFT KNEE ARTHROSCOPY Past Anesthesia/Blood Transfusion Reactions: No Reported Reaction Past Psychological History: Anxiety, Depression Smoking Status: Former smoker Past Alcohol Use History: None Reported Past Drug Use History: None Reported - Past Family History Father Additional Family Medical History / Comment(s): HEART PROBLEMS AT AGE 58 Mother Additional Family Medical History / Comment(s): AT AGE 82 <Crow Mcclellan - Last Filed: 11/29/20 10:26> General Exam Limitations: no limitations General appearance: alert, in no apparent distress Head exam: Present: atraumatic, normocephalic, normal inspection Eye exam: Present: normal appearance, PERRL, EOMI. Absent: scleral icterus, conjunctival injection, periorbital swelling ENT exam: Present: mucous membranes moist. Absent: normal oropharynx (Coating of the tongue noted) Neck exam: Present: normal inspection, full ROM. Absent: tenderness, meningismus, lymphadenopathy Respiratory exam: Present: normal lung sounds bilaterally. Absent: respiratory distress, wheezes, rales, rhonchi, stridor Cardiovascular Exam: Present: regular rate, normal rhythm, normal heart sounds. Absent: systolic murmur, diastolic murmur, rubs, gallop, clicks GI/Abdominal exam: Present: soft, normal bowel sounds. Absent: distended, tenderness, guarding, rebound, rigid Neurological exam: Present: alert, oriented X3 Skin exam: Present: warm, dry, intact, normal color. Absent: rash <Crow Mcclellan M - Last Filed: 11/29/20 10:26> Course Vital Signs 11/29/20 11/29/20 09:09 15:00 Temperature 97.7 F 98.0 F Pulse Rate 75 69 Respiratory 18 18 Rate Blood Pressure 119/73 124/76 O2 Sat by Pulse 98 96 Oximetry Medical Decision Making - Lab Data Result diagrams: 11/29/20 09:31 11/29/20 09:31 <Crow Mcclellan - Last Filed: 11/29/20 10:26> - Lab Data Result diagrams: 11/30/20 05:46 12/01/20 06:50 <Pauly Fox - Last Filed: 12/08/20 17:17> - Medical Decision Making Labs reveal acute kidney injury, renal failure. Patient will be admitted for neurology evaluation. Case discussed with admitting physician Dr. Chase (Crow Mcclellan) I was available for consultation in the emergency department. The history and physical exam were done by the midlevel provider. I was consulted for this patients care. I reviewed the case with the midlevel provider and based on their presentation of the patient, I agree with the assessment, medical decision making and plan of care as documented. Chart was dictated using [employer] dictation software. Attempts were made to correct any dictation errors however some typographical errors may persist. Patient was seen during a national state of emergency due to the Covid-19 pandemic. (Pauly Fox) - Lab Data Lab Results 11/29/20 11/29/20 11/29/20 Range/Units 09:26 09:31 09:31 WBC 12.2 H (3.8-10.6) k/uL RBC 3.97 L (4.30-5.90) m/uL Hgb 11.3 L (13.0-17.5) gm/dL Hct 34.9 L (39.0-53.0) % MCV 88.0 (80.0-100.0) fL MCH 28.4 (25.0-35.0) pg MCHC 32.2 (31.0-37.0) g/dL RDW 17.0 H (11.5-15.5) % Plt Count 293 (150-450) k/uL MPV 8.9 Neutrophils % 79 % Lymphocytes % 13 % Monocytes % 6 % Eosinophils % 2 % Basophils % 0 % Neutrophils # 9.7 H (1.3-7.7) k/uL Lymphocytes # 1.6 (1.0-4.8) k/uL Monocytes # 0.7 (0-1.0) k/uL Eosinophils # 0.2 (0-0.7) k/uL Basophils # 0.0 (0-0.2) k/uL Hypochromasia Slight Anisocytosis Slight Sodium (137-145) mmol/L Potassium (3.5-5.1) mmol/L Chloride (98-107) mmol/L Carbon Dioxide (22-30) mmol/L Anion Gap mmol/L BUN (9-20) mg/dL Creatinine (0.66-1.25) mg/dL Est GFR (CKD-EPI)AfAm (>60 ml/min/1.73 sqM) Est GFR (CKD-EPI)NonAf (>60 ml/min/1.73 sqM) Glucose (74-99) mg/dL POC Glucose (mg/dL) 90 (75-99) mg/dL POC Glu It Risk And Assurance Manager ID Chanel Barrow Plasma Lactic Acid Rich (0.7-2.0) mmol/L Calcium (8.4-10.2) mg/dL Magnesium (1.6-2.3) mg/dL Total Bilirubin (0.2-1.3) mg/dL AST (17-59) U/L ALT (4-49) U/L Alkaline Phosphatase (38-126) U/L Total Protein (6.3-8.2) g/dL Albumin (3.5-5.0) g/dL Urine Color Light Yellow Urine Appearance Clear (Clear) Urine pH 5.0 (5.0-8.0) Ur Specific [place] 1.015 (1.001-1.035) Urine Protein Negative (Negative) Urine Glucose (UA) 1+ H (Negative) Urine Ketones Negative (Negative) Urine Blood Negative (Negative) Urine Nitrite Negative (Negative) Urine Bilirubin Negative (Negative) Urine Urobilinogen <2.0 (<2.0) mg/dL Ur Leukocyte Esterase Negative (Negative) 11/29/20 11/29/20 Range/Units 09:31 09:31 WBC (3.8-10.6) k/uL RBC (4.30-5.90) m/uL Hgb (13.0-17.5) gm/dL Hct (39.0-53.0) % MCV (80.0-100.0) fL MCH (25.0-35.0) pg MCHC (31.0-37.0) g/dL RDW (11.5-15.5) % Plt Count (150-450) k/uL MPV Neutrophils % % Lymphocytes % % Monocytes % % Eosinophils % % Basophils % % Neutrophils # (1.3-7.7) k/uL Lymphocytes # (1.0-4.8) k/uL Monocytes # (0-1.0) k/uL Eosinophils # (0-0.7) k/uL Basophils # (0-0.2) k/uL Hypochromasia Anisocytosis Sodium 141 (137-145) mmol/L Potassium 4.2 (3.5-5.1) mmol/L Chloride 108 H (98-107) mmol/L Carbon Dioxide 23 (22-30) mmol/L Anion Gap 10 mmol/L BUN 56 H (9-20) mg/dL Creatinine 3.03 H (0.66-1.25) mg/dL Est GFR (CKD-EPI)AfAm 24 (>60 ml/min/1.73 sqM) Est GFR (CKD-EPI)NonAf 20 (>60 ml/min/1.73 sqM) Glucose 94 (74-99) mg/dL POC Glucose (mg/dL) (75-99) mg/dL POC Glu It Risk And Assurance Manager ID Plasma Lactic Acid Rich 1.2 (0.7-2.0) mmol/L Calcium 9.4 (8.4-10.2) mg/dL Magnesium 2.4 H (1.6-2.3) mg/dL Total Bilirubin 0.4 (0.2-1.3) mg/dL AST 22 (17-59) U/L ALT 18 (4-49) U/L Alkaline Phosphatase 52 (38-126) U/L Total Protein 6.8 (6.3-8.2) g/dL Albumin 4.2 (3.5-5.0) g/dL Urine Color Urine Appearance (Clear) Urine pH (5.0-8.0) Ur Specific [place] (1.001-1.035) Urine Protein (Negative) Urine Glucose (UA) (Negative) Urine Ketones (Negative) Urine Blood (Negative) Urine Nitrite (Negative) Urine Bilirubin (Negative) Urine Urobilinogen (<2.0) mg/dL Ur Leukocyte Esterase (Negative) Disposition <Crow Mcclellan - Last Filed: 11/29/20 10:26> <Pauly Fox - Last Filed: 12/08/20 17:17> Clinical Impression: Acute kidney injury Disposition: ADMITTED IP TO THIS HOSP Condition: Stable
--- NOTE | 2020-11-29 10:03 | XR ---
EXAMINATION TYPE: XR chest 2V DATE OF EXAM: 11/29/2020 COMPARISON: 10/29/2020 HISTORY: Shortness of breath TECHNIQUE: Frontal and lateral views of the chest are obtained. FINDINGS: Scattered senescent parenchymal changes noted. Hyperinflation compatible with COPD. No evidence for infiltrate. No evidence for atelectasis. Heart size is stable. Mediastinal structures are stable and grossly unremarkable. No evidence for hilar prominence. Degenerative changes dorsal spine. David rods are in place. IMPRESSION: 1. No evidence for acute pulmonary disease.
[2020-11-29 10:04] LABS: Albumin 4.2 g/dL (3.5-5.0); Calcium 9.4 mg/dL (8.4-10.2); Magnesium 2.4 mg/dL (1.6-2.3); Potassium 4.2 mmol/L (3.5-5.1); Total Bilirubin 0.4 mg/dL (0.2-1.3); Total Protein 6.8 g/dL (6.3-8.2)
[2020-11-29] MEDS ORDERED: NALOXONE 0.4 MG/ML 1 ML VIAL IV PRN (10:30)
[2020-11-29] MEDS ORDERED: SODIUM CHLORIDE 0.9% 1,000 ML IV SCH (10:30)
[2020-11-29] MEDS ORDERED: ONDANSETRON 4 MG/2 ML VIAL IVP PRN (10:30)
--- NOTE | 2020-11-29 12:24 | P.HPIM ---
History of Present Illness H&P Date: 11/29/20 Chief Complaint: Abnormal lab work This is a 65-year-old male with past medical history noted below significant for type 2 diabetes and essential hypertension that presented to the emergency room sent by his primary care doctor for abnormal lab work. Patient said that he was scheduled for shoulder surgery on the and went to get regular blood or and was called by his PCP today to go to the ER for elevated creatinine. Lab work in the emergency room showed a creatinine of 3.0. Patient said that he has been eating and drinking normally at home but appears slightly dehydrated clinically. He denies NSAIDs use. He said that he has been taking his medication as pre scribed with no recent change in his regimen. He is also complaining of mild headache. He was started on IV fluid hydration and will be admitted to the hospital for nephrology evaluation Review of Systems Review of system: 14 points review of systems were obtained and were negative except to what were mentioned in the HPI. Past Medical History Past Medical History: GERD/Reflux, Hypertension Additional Past Medical History / Comment(s): CHRONIC BACK ISSUES History of Any Multi-Drug Resistant Organisms: None Reported Past Surgical History: Back Surgery, Bariatric Surgery, Orthopedic Surgery Additional Past Surgical History / Comment(s): LEFT ANKLE, LEFT HIP, LAP BAND AND REMOVAL,GASTRIC SLEEVE, LEFT KNEE ARTHROSCOPY Past Anesthesia/Blood Transfusion Reactions: No Reported Reaction Past Psychological History: Anxiety, Depression Smoking Status: Former smoker Past Alcohol Use History: None Reported Past Drug Use History: None Reported - Past Family History Father Additional Family Medical History / Comment(s): HEART PROBLEMS AT AGE 58 Mother Additional Family Medical History / Comment(s): AT AGE 82 Medications and Allergies Home Medications Medication Instructions Recorded Confirmed Type Tamsulosin HCl [Flomax] 0.8 mg PO HS 07/13/14 11/29/20 History Canagliflozin [Invokana] 100 mg PO AC-BRKFST 10/29/20 11/29/20 History DULoxetine HCL [Cymbalta] 60 mg PO BID 10/29/20 11/29/20 History Levothyroxine Sodium 200 mcg PO DAILY 10/29/20 11/29/20 History Liraglutide [Victoza 2-Silvano] 0.6 mg SQ DAILY 10/29/20 11/29/20 History Lisinopril-Hctz 20-25 mg 1 tab PO DIRECTED 10/29/20 11/29/20 History [Zestoretic 20-25] Sildenafil Citrate 100 mg PO AC-BRKFST 10/29/20 11/29/20 History Testosterone Cypionate 120 mg IM FR 10/29/20 11/29/20 History [Depo-Testosterone] Metoprolol Succinate (ER) [Toprol 25 mg PO DAILY 11/29/20 11/29/20 History Xl] Pantoprazole Sodium [Protonix] 40 mg PO DAILY 11/29/20 11/29/20 History Allergies Allergy/AdvReac Type Severity Reaction Status Date / Time No Known Allergies Allergy Verified 11/29/20 10:56 Physical Exam Vitals: Vital Signs Temp Pulse Resp BP Pulse Ox 11/29/20 09:09 97.7 F 75 18 119/73 98 Intake and Output 11/28/20 11/29/20 11/29/20 22:59 06:59 14:59 Other: Weight 104.326 kg General: The patient is awake and alert, in no distress Eye: there is normal conjunctiva bilaterally. Neck: The neck is supple, there is no JVD. Cardiovascular: Normal S1-S2, no S3-S4, no murmurs. Respiratory: Lungs clear to auscultation bilaterally Gastrointestinal: Abdomen is soft, nontender Musculoskeletal: There is no pedal edema. Neurological:. Speech is normal. Skin: Skin is warm and dry Results CBC & Chem 7: 11/29/20 09:31 11/29/20 09:31 Labs: Abnormal Lab Results - Last 24 Hours (Table) 11/29/20 11/29/20 11/29/20 Range/Units 09:31 09:31 09:31 WBC 12.2 H (3.8-10.6) k/uL RBC 3.97 L (4.30-5.90) m/uL Hgb 11.3 L (13.0-17.5) gm/dL Hct 34.9 L (39.0-53.0) % RDW 17.0 H (11.5-15.5) % Neutrophils # 9.7 H (1.3-7.7) k/uL Chloride 108 H (98-107) mmol/L BUN 56 H (9-20) mg/dL Creatinine 3.03 H (0.66-1.25) mg/dL Magnesium 2.4 H (1.6-2.3) mg/dL Urine Glucose (UA) 1+ H (Negative) Assessment and Plan Assessment: This is a 65-year-old male with past medical history noted below who presented to the emergency room with abnormal lab work and elevated creatinine. Patient was evaluated in the ER and placed on observation for further management of his medical problems noted below. 1. Acute kidney injury, possibly secondary to dehydration. Continue IV fluid hydration with normal saline at 100 mL per hour. Bladder scan in the emergency room showed no evidence of retention. Hold nephrotoxic syncopal including home dose of lisinopril/hydrochlorothiazide. Nephrology consulted by ER for further evaluation. 2. Chronic medical problems: Essential hypertension, type 2 diabetes, un derlying depression, hypothyroidism 3. DVT prophylaxis with subcu heparin Today, I reviewed his medication list and lab work results. Resume home medications except lisinopril/hydrochlorothiazide. Awaiting nephrology evaluation. Repeat lab work in the morning. Urinalysis unremarkable.
[2020-11-29 12:38] LABS: Glucose,Whole Blood 91 mg/dL (75-99)
[2020-11-29] MEDS: INSULIN ASPART (NovoLOG) 100 UNIT/ML VIAL SQ SCH ×3 (12:38→20:29)
--- NOTE | 2020-11-29 13:04 | P.NPCON ---
History of Present Illness - Reason for Consult acute renal failure - History of Present Illness Reason for consultation: Acute kidney injury on chronic kidney disease History of present illness: Patient is a 65-year-old male seen in renal consultation for acute kidney injury on chronic kidney disease. Patient has chronic kidney disease stage III a baseline creatinine near 1.3. Etiology is nephrosclerosis and chronic interstitial nephritis from nonsteroidal use. Patient states he had blood work done outpatient and was advised to go to the hospital due to abnormal labs. Patient is noted to be in acute renal failure with creatinine of 3.03. He does take lisinopril and hydrocodone thiazide outpatient. Blood pressure on admission was 119/73. He denies use of nonsteroidals. He does admit to dry heaving and vomiting. Oral intake has been poor for the last 1 month. Patient states he had GI bleed in October 2020 and underwent EGD which revealed esophageal ulceration with active bleeding which was clipped. Patient states he has lost over 30 pounds in the last 1 month. He is only able to keep baby food down. Denies chest pain or shortness of breath. No edema. No hematuria or dysuria. No fever or chills. He tested negative for coronavirus. Vital signs are stable. General: The patient appeared well nourished and normally developed. HEENT: Head exam is unremarkable. Neck is without jugular venous distension. LUNGS: Breath sounds decreased. HEART: Rate and Rhythm are regular. ABDOMEN: Soft, no distention. EXTREMITITES: No edema. Past Medical History Past Medical History: GERD/Reflux, Hypertension Additional Past Medical History / Comment(s): CHRONIC BACK ISSUES History of Any Multi-Drug Resistant Organisms: None Reported Past Surgical History: Back Surgery, Bariatric Surgery, Orthopedic Surgery Additional Past Surgical History / Comment(s): LEFT ANKLE, LEFT HIP, LAP BAND AND REMOVAL,GASTRIC SLEEVE, LEFT KNEE ARTHROSCOPY Past Anesthesia/Blood Transfusion Reactions: No Reported Reaction Past Psychological History: Anxiety, Depression Smoking Status: Former smoker Past Alcohol Use History: None Reported Past Drug Use History: None Reported - Past Family History Father Additional Family Medical History / Comment(s): HEART PROBLEMS AT AGE 58 Mother Additional Family Medical History / Comment(s): AT AGE 82 Medications and Allergies Home Medications Medication Instructions Recorded Confirmed Type Tamsulosin HCl [Flomax] 0.8 mg PO HS 07/13/14 11/29/20 History Canagliflozin [Invokana] 100 mg PO -BRKFST 10/29/20 11/29/20 History DULoxetine HCL [Cymbalta] 60 mg PO BID 10/29/20 11/29/20 History Levothyroxine Sodium 200 mcg PO DAILY 10/29/20 11/29/20 History Liraglutide [Victoza 2-Silvano] 0.6 mg SQ DAILY 10/29/20 11/29/20 History Lisinopril-Hctz 20-25 mg 1 tab PO DIRECTED 10/29/20 11/29/20 History [Zestoretic 20-25] Sildenafil Citrate 100 mg PO -BRKFST 10/29/20 11/29/20 History Testosterone Cypionate 120 mg IM FR 10/29/20 11/29/20 History [Depo-Testosterone] Metoprolol Succinate (ER) [Toprol 25 mg PO DAILY 11/29/20 11/29/20 History Xl] Pantoprazole Sodium [Protonix] 40 mg PO DAILY 11/29/20 11/29/20 History Allergies Allergy/AdvReac Type Severity Reaction Status Date / Time No Known Allergies Allergy Verified 11/29/20 10:56 Physical Exam Vitals: Vital Signs Temp Pulse Resp BP Pulse Ox 11/29/20 09:09 97.7 F 75 18 119/73 98 Intake and Output 11/28/20 11/29/20 11/29/20 22:59 06:59 14:59 Other: Weight 104.326 kg Results - Lab Results Most recent lab results Calcium 9.4 mg/dL (8.4-10.2) 11/29/20 09:31 Magnesium 2.4 mg/dL (1.6-2.3) H 11/29/20 09:31 11/29/20 09:31 11/29/20 09:31 Assessment and Plan Plan: Assessment: 1. Acute kidney injury secondary to ATN secondary to poor intake and hypovolemia from vomiting and diuretic. Creatinine 3.03 on admission. UA benign. 2. Chronic kidney disease stage III as a baseline creatinine 1.3 secondary to nephrosclerosis and chronic interstitial nephritis from nonsteroidal use. 3. Hypertension with chronic kidney disease. Stable. 4. Acute GI bleed in October 2020 status post esophageal ulcer clipping. 5. Diabetes mellitus. Plan: Maintain IV fluids. Check renal ultrasound. Hold lisinopril and diuretics. Avoid nephrotoxins. Continue to monitor renal function and urine output. Thank you for the consultation. I will continue to follow the patient with you during his hospital stay.
[2020-11-29] MEDS: SODIUM CHLORIDE 0.9% 2,000 ML IV SCH (13:30)
[2020-11-29] MEDS ORDERED: MORPHINE SULFATE 2 MG/ML SYRINGE IVP STA (13:45)
--- NOTE | 2020-11-29 15:15 | US ---
EXAMINATION TYPE: US kidneys/renal and bladder DATE OF EXAM: 11/29/2020 COMPARISON: 10/22/18 CLINICAL HISTORY: dilip. abn labs EXAM MEASUREMENTS: Right Kidney: 11.5 x 5.6 x 7.1 cm Left Kidney: 9.5 x 6.1 x 6.3 cm Right Kidney: Multiple upper pole exophytic simple cystic lesions seen. Largest = 6.5 x 5.6 x 7.0 cm Left Kidney: Prominent pyramids seen Bladder: distended, anechoic Bilateral Jets not seen There is no evidence for hydronephrosis at this point in time. No nephrolithiasis is seen. No solid masses are identified. The urinary bladder is anechoic. Bilateral ureteral jets are seen. IMPRESSION: Renal cystic changes.
[2020-11-29 17:54] LABS: Glucose,Whole Blood 94 mg/dL (75-99)
[2020-11-29 20:20] LABS: Glucose,Whole Blood 85 mg/dL (75-99)
[2020-11-29] MEDS: TAMSULOSIN 0.4 MG CAP.ER.24H PO SCH (20:51)
[2020-11-29] MEDS: DULoxetine HCL 60 MG CAPSULE.DR PO SCH (20:51)
[2020-11-29] MEDS: HEPARIN SODIUM,PORCINE/PF 5,000 UNIT/0.5 ML SYRINGE SQ SCH (20:51)
[2020-11-29] MEDS: Acetaminophen-Codeine 300-30mg TAB PO PRN (20:52)
[2020-11-29] MEDS ORDERED: ALPRAZolam 0.25 MG TAB PO PRN (21:27)
[2020-11-30] MEDS: LEVOTHYROXINE 100 MCG TAB PO SCH (05:31)
[2020-11-30] MEDS: Acetaminophen-Codeine 300-30mg TAB PO PRN ×2 (05:32→18:22)
[2020-11-30 06:47] LABS: Glucose,Whole Blood 108 mg/dL (75-99)
[2020-11-30] MEDS: SODIUM CHLORIDE 0.9% 2,000 ML IV SCH (07:25)
[2020-11-30] MEDS: INSULIN ASPART (NovoLOG) 100 UNIT/ML VIAL SQ SCH ×4 (07:25→20:56)
[2020-11-30] MEDS: METOPROLOL SUCCINATE (ER) 25 MG TAB.ER.24H PO SCH (08:24)
[2020-11-30] MEDS: DULoxetine HCL 60 MG CAPSULE.DR PO SCH ×2 (08:25→20:56)
[2020-11-30] MEDS: HEPARIN SODIUM,PORCINE/PF 5,000 UNIT/0.5 ML SYRINGE SQ SCH ×2 (08:25→20:56)
[2020-11-30] MEDS: PANTOPRAZOLE 40 MG TABLET PO SCH (08:25)
[2020-11-30 09:37] LABS: Basophils # (A) 0.04 X 10*3/uL (0.00-0.10); Basophils % (A) 0.4 %; Eosinophils % (A) 1.9 %; HCT 32.7 % (39.6-50.0); HGB 9.9 g/dL (13.0-17.0); MCH 27.7 pg (27.0-32.0); MCHC 30.3 g/dL (32.0-37.0); MCV 91.6 fL (80.0-97.0); Mean Platelet Volume 12.1 fL (9.5-12.2); Monocytes # (A) 0.82 X 10*3/uL (0.20-1.00); Monocytes % (A) 7.7 %; Neutrophils # (A) 7.72 X 10*3/uL (1.80-7.70); Neutrophils % (A) 72.4 %; Platelet Count 259 X 10*3/uL (140-440); RBC 3.57 X 10*6/uL (4.40-5.60); RDW 17.1 % (11.5-14.5); WBC 10.65 X 10*3/uL (4.50-10.00)
[2020-11-30 10:29] LABS: African American GFR (CKD) 29.9 (60.0-200.0); Anion Gap 10.7 mmol/L (4.00-12.00); BUN/Creat Ratio 18.8 Ratio (12.00-20.00); Calcium 8.4 mg/dL (8.7-10.3); Carbon Dioxide 24.3 mmol/L (21.6-31.8); Magnesium 1.8 mg/dL (1.5-2.4); Non-African American GFR(CKD) 25.8 (60.0-200.0)
[2020-11-30 11:28] LABS: Glucose,Whole Blood 100 mg/dL (75-99)
--- NOTE | 2020-11-30 12:16 | P.PN ---
Subjective Patient is seen in follow-up for acute kidney injury on chronic kidney disease. Renal function improving with IV hydration. Oral intake is poor. Only able to keep down ice cream. Good urine output. Vital signs are stable. General: The patient appeared well nourished and normally developed. HEENT: Head exam is unremarkable. LUNGS: Lungs are clear to auscultation and percussion. Breath sounds decreased. HEART: Rate and Rhythm are regular. ABDOMEN: Soft, no distention. EXTREMITITES: No clubbing, cyanosis, or edema. Objective - Vital Signs Vital signs: Vital Signs Temp 98.3 F 11/30/20 08:06 Pulse 84 11/30/20 08:35 Resp 14 11/30/20 08:06 BP 95/57 11/30/20 08:35 Pulse Ox 96 11/30/20 08:06 Intake & Output 11/29/20 11/30/20 11/30/20 18:59 06:59 18:59 Output Total 300 Balance -300 Weight 104.326 kg Output: Urine 300 Other: Voiding Method Toilet # Voids 3 1 - Labs CBC & Chem 7: 11/30/20 05:46 11/30/20 05:46 Labs: Abnormal Lab Results - Last 24 Hours (Table) 11/30/20 11/30/20 11/30/20 Range/Units 05:46 05:46 06:46 WBC 10.65 H (4.50-10.00) X 10*3/uL RBC 3.57 L (4.40-5.60) X 10*6/uL Hgb 9.9 L (13.0-17.0) g/dL Hct 32.7 L (39.6-50.0) % MCHC 30.3 L (32.0-37.0) g/dL RDW 17.1 H (11.5-14.5) % Immature Gran # 0.17 H (0.00-0.04) X 10*3/uL Neutrophils # 7.72 H (1.80-7.70) X 10*3/uL BUN 47.0 H (9.0-27.0) mg/dL Creatinine 2.5 H (0.6-1.5) mg/dL Est GFR (CKD-EPI)AfAm 29.9 L (60.0-200.0) Est GFR (CKD-EPI)NonAf 25.8 L (60.0-200.0) POC Glucose (mg/dL) 108 H (75-99) mg/dL Calcium 8.4 L (8.7-10.3) mg/dL 11/30/20 Range/Units 11:26 WBC (4.50-10.00) X 10*3/uL RBC (4.40-5.60) X 10*6/uL Hgb (13.0-17.0) g/dL Hct (39.6-50.0) % MCHC (32.0-37.0) g/dL RDW (11.5-14.5) % Immature Gran # (0.00-0.04) X 10*3/uL Neutrophils # (1.80-7.70) X 10*3/uL BUN (9.0-27.0) mg/dL Creatinine (0.6-1.5) mg/dL Est GFR (CKD-EPI)AfAm (60.0-200.0) Est GFR (CKD-EPI)NonAf (60.0-200.0) POC Glucose (mg/dL) 100 H (75-99) mg/dL Calcium (8.7-10.3) mg/dL Assessment and Plan Plan: Assessment: 1. Acute kidney injury secondary to ATN secondary to poor intake and hypovolemia from vomiting and diuretic. Creatinine 3.03 on admission - 2.5 today. UA benign. No hydronephrosis noted on kidney ultrasound. 2. Chronic kidney disease stage III as a baseline creatinine 1.3 secondary to nephrosclerosis and chronic interstitial nephritis from nonsteroidal use. 3. Hypertension with chronic kidney disease. Blood pressure on the lower side. 4. Acute GI bleed in October 2020 status post esophageal ulcer clipping. 5. Diabetes mellitus. Plan: Maintain IV fluids. Continue to hold lisinopril and diuretics. Avoid nephrotoxins. Continue to monitor renal function and urine output.
--- NOTE | 2020-11-30 13:05 | P.PN ---
Subjective Progress Note Date: 11/30/20 Patient is doing fairly well today. No acute events overnight. Objective - Vital Signs Vital signs: Vital Signs Temp 98.3 F 11/30/20 08:06 Pulse 84 11/30/20 08:35 Resp 14 11/30/20 08:06 BP 95/57 11/30/20 08:35 Pulse Ox 96 11/30/20 08:06 Intake & Output 11/29/20 11/30/20 11/30/20 18:59 06:59 18:59 Output Total 300 Balance -300 Weight 104.326 kg Output: Urine 300 Other: Voiding Method Toilet # Voids 3 1 - Exam General: The patient is awake and alert, in no distress Eye: there is normal conjunctiva bilaterally. Neck: The neck is supple, there is no JVD. Cardiovascular: Normal S1-S2, no S3-S4, no murmurs. Respiratory: Lungs clear to auscultation bilaterally Gastrointestinal: Abdomen is soft, nontender Musculoskeletal: There is no pedal edema. Neurological:. Speech is normal. Skin: Skin is warm and dry - Labs CBC & Chem 7: 11/30/20 05:46 11/30/20 05:46 Labs: Abnormal Lab Results - Last 24 Hours (Table) 11/30/20 11/30/20 11/30/20 Range/Units 05:46 05:46 06:46 WBC 10.65 H (4.50-10.00) X 10*3/uL RBC 3.57 L (4.40-5.60) X 10*6/uL Hgb 9.9 L (13.0-17.0) g/dL Hct 32.7 L (39.6-50.0) % MCHC 30.3 L (32.0-37.0) g/dL RDW 17.1 H (11.5-14.5) % Immature Gran # 0.17 H (0.00-0.04) X 10*3/uL Neutrophils # 7.72 H (1.80-7.70) X 10*3/uL BUN 47.0 H (9.0-27.0) mg/dL Creatinine 2.5 H (0.6-1.5) mg/dL Est GFR (CKD-EPI)AfAm 29.9 L (60.0-200.0) Est GFR (CKD-EPI)NonAf 25.8 L (60.0-200.0) POC Glucose (mg/dL) 108 H (75-99) mg/dL Calcium 8.4 L (8.7-10.3) mg/dL 11/30/20 Range/Units 11:26 WBC (4.50-10.00) X 10*3/uL RBC (4.40-5.60) X 10*6/uL Hgb (13.0-17.0) g/dL Hct (39.6-50.0) % MCHC (32.0-37.0) g/dL RDW (11.5-14.5) % Immature Gran # (0.00-0.04) X 10*3/uL Neutrophils # (1.80-7.70) X 10*3/uL BUN (9.0-27.0) mg/dL Creatinine (0.6-1.5) mg/dL Est GFR (CKD-EPI)AfAm (60.0-200.0) Est GFR (CKD-EPI)NonAf (60.0-200.0) POC Glucose (mg/dL) 100 H (75-99) mg/dL Calcium (8.7-10.3) mg/dL Assessment and Plan Assessment: This is a 65-year-old male with past medical history noted below who presented to the emergency room with abnormal lab work and elevated creatinine. Patient was evaluated in the ER and placed on observation for further management of his medical problems noted below. 1. Acute kidney injury, possibly secondary to dehydration and HTN. Continue IV fluid hydration with normal saline at 100 mL per hour. Bladder scan in the emergency room showed no evidence of retention. Hold nephrotoxic syncopal including home dose of lisinopril/hydrochlorothiazide. Nephrology consulted by ER for further evaluation. Ultrasound of the kidneys with no hydronephrosis 2. Chronic medical problems: Essential hypertension, type 2 diabetes, underlying depression, hypothyroidism 3. DVT prophylaxis with subcu heparin Today, I reviewed his medication list and lab work results. Continue home medications except lisinopril/hydrochlorothiazide. Repeat lab work in the morning. Urinalysis unremarkable.
[2020-11-30 14:07] VITALS: BMI 31.1
[2020-11-30 16:57] LABS: Glucose,Whole Blood 135 mg/dL (75-99)
[2020-11-30 20:37] LABS: Glucose,Whole Blood 87 mg/dL (75-99)
[2020-11-30] MEDS: TAMSULOSIN 0.4 MG CAP.ER.24H PO SCH (20:56)
[2020-12-01] MEDS: LEVOTHYROXINE 100 MCG TAB PO SCH (05:42)
[2020-12-01] MEDS: SODIUM CHLORIDE 0.9% 2,000 ML IV SCH (05:44)
[2020-12-01 07:06] LABS: Glucose,Whole Blood 87 mg/dL (75-99)
[2020-12-01] MEDS: INSULIN ASPART (NovoLOG) 100 UNIT/ML VIAL SQ SCH ×2 (08:23→12:05)
[2020-12-01 08:32] VITALS: RESP 18; TEMP 98.4
[2020-12-01 09:16] VITALS: BP 98/57; PULSE 109
[2020-12-01] MEDS: METOPROLOL SUCCINATE (ER) 25 MG TAB.ER.24H PO SCH (09:16)
[2020-12-01] MEDS: HEPARIN SODIUM,PORCINE/PF 5,000 UNIT/0.5 ML SYRINGE SQ SCH (09:17)
[2020-12-01] MEDS: Acetaminophen-Codeine 300-30mg TAB PO PRN (09:17)
[2020-12-01] MEDS: DULoxetine HCL 60 MG CAPSULE.DR PO SCH (09:17)
[2020-12-01] MEDS: PANTOPRAZOLE 40 MG TABLET PO SCH (09:17)
[2020-12-01 11:16] LABS: Glucose,Whole Blood 79 mg/dL (75-99)
[2020-12-01 11:39] LABS: African American GFR (CKD) 39.1 (60.0-200.0); Anion Gap 5.7 mmol/L (4.00-12.00); BUN/Creat Ratio 16.5 Ratio (12.00-20.00); Calcium 8.5 mg/dL (8.7-10.3); Carbon Dioxide 26.3 mmol/L (21.6-31.8); Non-African American GFR(CKD) 33.8 (60.0-200.0); Potassium 3.8 mmol/L (3.5-5.5)
--- NOTE | 2020-12-01 13:25 | P.DS ---
Providers Date of admission: 11/29/20 10:25 Expected date of discharge: 12/01/20 Attending physician: Tammie Chase Consults: 11/29/20 10:30 Consult Physician Urgent Consulting Provider: Tom Rodríguez Consult Reason/Comments: dilip Do you want consulting provider notified?: Yes Primary care physician: Joesph Loera MD Hospital Course: This is a 65-year-old male with past medical history noted below who presented to the emergency room with abnormal lab work and elevated creatinine. Patient was evaluated in the ER and placed on observation for further management of his medical problems noted below. 1. Acute kidney injury, possibly secondary to dehydration and ATN. Creatinine improved with IV fluid hydration. Bladder scan in the emergency room showed no evidence of retention. Hold nephrotoxic syncopal including home dose of lisinopril/hydrochlorothiazide. Nephrology consulted for further evaluation. Ultrasound of the kidneys with no hydronephrosis. Patient was cleared by nephrology for discharge with plan for repeat blood work within the next couple of days with his PCP. Creatinine at discharge 2 2. Chronic medical problems: Essential hypertension, type 2 diabetes, underlying depression, hypothyroidism Patient Condition at Discharge: Stable Plan - Discharge Summary Discharge Rx Participant: No New Discharge Prescriptions: Continue Tamsulosin HCl [Flomax] 0.8 mg PO HS Liraglutide [Victoza 2-Silvano] 0.6 mg SQ DAILY Testosterone Cypionate [Depo-Testosterone] 120 mg IM FR ALPRAZolam [Xanax] 0.25 mg PO BID PRN PRN Reason: Anxiety Levothyroxine Sodium 200 mcg PO DAILY Canagliflozin [Invokana] 100 mg PO AC-BRKFST DULoxetine HCL [Cymbalta] 60 mg PO BID Pantoprazole Sodium [Protonix] 40 mg PO DAILY Discontinued Sildenafil Citrate 100 mg PO AC-BRKFST Metoprolol Succinate (ER) [Toprol Xl] 25 mg PO DAILY Lisinopril-Hctz 20-25 mg [Zestoretic 20-25] 1 tab PO DIRECTED Discharge Medication List Tamsulosin HCl [Flomax] 0.8 mg PO HS 07/13/14 [History] Canagliflozin [Invokana] 100 mg PO AC-BRKFST 10/29/20 [History] DULoxetine HCL [Cymbalta] 60 mg PO BID 10/29/20 [History] Levothyroxine Sodium 200 mcg PO DAILY 10/29/20 [History] Liraglutide [Victoza 2-Silvano] 0.6 mg SQ DAILY 10/29/20 [History] Testosterone Cypionate [Depo-Testosterone] 120 mg IM FR 10/29/20 [History] ALPRAZolam [Xanax] 0.25 mg PO BID PRN 11/29/20 [History] Pantoprazole Sodium [Protonix] 40 mg PO DAILY 11/29/20 [History] Follow up Appointment(s)/Referral(s): Joesph Loera MD [Primary Care Provider] - 1-2 days Discharge Disposition: HOME SELF-CARE
--- NOTE | 2020-12-01 16:01 | PN ---
PROGRESS NOTE Patient is seen for followup for acute kidney injury. Renal function has been improving. Serum creatinine down to 2.0 from 3.0 on initial admission. He is currently maintained on IV fluids. PHYSICAL EXAMINATION: On examination today, blood pressure was 100/58, heart rate 83 per minute. He is afebrile. Repeat blood pressure later on today was low with systolic of 98 mmHg. Examination of the heart S1, S2. Examination of the lungs, bilateral breath sounds are heard. Abdomen is soft, nontender. Examination of lower extremities shows no significant edema. [employer] exam shows patient moving all four extremities. LAB: From today show sodium 143, potassium 3.8, chloride 111, BUN 33, serum creatinine 2.0, calcium 8.5. ASSESSMENT: 1. Acute kidney injury, prerenal, currently improving with IV hydration. 2. Chronic kidney disease stage 3. Baseline creatinine about 1.3 secondary to nephrosclerosis, chronic interstitial nephropathy associated with use of NSAIDs. 3. Hypertension with chronic kidney disease. Blood pressure currently low, maintained on IV fluids. 4. Acute GI bleed status post esophageal ulcer clipping. 5. Type 2 diabetes. PLAN: Continue with IV fluids. Hold off on antihypertensive medications. Decrease Lopressor to 12.5 mg b.i.d. MMODL / IJN: [id number] /
[2020-12-02] MEDS ORDERED: METOPROLOL SUCCINATE (ER) 25 MG TAB.ER.24H PO SCH (09:00)
== END 2020-12-01 15:32 | disposition home or self-care (01) | DRG 683 ==
LOC: EC 09:08 → 5NMEDONC 10:25 → 4SSUR 16:51
PROVIDERS: ADMIT Internal Medicine; ATTEND Internal Medicine
DX: N17.0 Acute kidney failure with tubular necrosis (principal); B37.0 Candidal stomatitis; N18.30 Chronic kidney disease, stage 3 unspecified; N11.9 Chronic tubulo-interstitial nephritis, unspecified; T50.2X5A Adverse effect of carbonic-anhydrase inhibitors, benzothiadiazides and other diuretics, initial encounter; T39.315A Adverse effect of propionic acid derivatives, initial encounter; I12.9 Hypertensive chronic kidney disease with stage 1 through stage 4 chronic kidney disease, or unspecified chronic kidney disease; Z87.11 Personal history of peptic ulcer disease; F41.9 Anxiety disorder, unspecified; F32.9 Major depressive disorder, single episode, unspecified; E03.9 Hypothyroidism, unspecified; R11.10 Vomiting, unspecified; E11.22 Type 2 diabetes mellitus with diabetic chronic kidney disease; E86.0 Dehydration; E86.1 Hypovolemia; R51.9 Headache, unspecified; T14.90XS Injury, unspecified, sequela; W19.XXXS Unspecified fall, sequela; Z20.822 Contact with and (suspected) exposure to COVID-19; Z79.890 Hormone replacement therapy; Z79.899 Other long term (current) drug therapy; Z87.891 Personal history of nicotine dependence; Z98.84 Bariatric surgery status; Z82.49 Family history of ischemic heart disease and other diseases of the circulatory system
CPT/HCPCS: 36415; 51798; 71046; 76770; 80048; 80053; 81003; 83605; 83735; 85025; 87635; 96374; 99285

== ENCOUNTER 2020-12-07 12:06 | Day surgery (SDC) | payer MEDICARE ==
[2020-12-04 14:17] VITALS: BMI 29.1
[~2020-12-07 12:06] MED LIST: LACTATED RINGERS 1,000 ML IV SCH
[2020-12-07] MEDS ORDERED: LIDOCAINE 1% (10MG/ML) FOR IV START INTRADERMA ONE (12:35)
[2020-12-07 12:40] VITALS: TEMP 97.7
[2020-12-07] MEDS ORDERED: PROPOFOL 10 MG/ML 20 ML VIAL IV ONE (12:55)
[2020-12-07] MEDS ORDERED: LIDOCAINE 1% INJ 10MG/ML (20 ML MDV) ONE (12:55)
--- NOTE | 2020-12-07 13:26 | P.PCN ---
Date of Procedure: 12/07/20 Procedure(s) Performed: BRIEF HISTORY: Patient is a 65-year-old, pleasant, white male with history of gastric bleeding surgery, scheduled for an upper endoscopy as a part of evaluation of severe epigastric pain and dysphagia to solids. He was admitted to [facility] with acute upper GI bleed in October 2020. He had an upper endoscopy done that revealed a large circumferential ulceration involving the distal esophagus at 20 cm from the incisors with a visible vessel and clot for which she underwent injection epinephrine and Endo Clip placement. Subsequently was started on Protonix 40 mg twice daily as well as Carafate. He continues to have severe burning epigastric pain and dysphagia to solids. He lost about 30 pounds since onset of the symptoms. His and scheduled for repeat upper endoscopy to evaluate further.. PROCEDURE PERFORMED: Esophagogastroduodenoscopy with biopsy. PREOPERATIVE DIAGNOSIS: Severe epigastric pain/heartburn/dysphagia and progressive weight loss of 40 pounds in the last 1 month duration. IV sedation per anesthesia. PROCEDURE: After informed consent was obtained, the patient was brought into the endoscopy unit. IV sedation was administered by Anesthesia under continuous monitoring. Initially the Olympus GIF-140 video endoscope was inserted into the mouth. Esophagus intubated without any difficulty. It was gradually advanced into the stomach and duodenum and carefully examined. The bulb and the second part of the duodenum appeared normal. The scope at this time was withdrawn to the stomach, adequately insufflated with air, and upon careful examination, mucosa of the antrum, appeared normal. There was evidence of gastric sleeve surgery noted. Because of the body of the stomach appeared normal. The scope was then withdrawn into the esophagus. The GE junction was located at 35 cm from the incisors. There was a 2 cm superficial distal esophageal ulceration identified with some biopsy mucosa that appeared inflamed consistent with severe reflux esophagitis. Multiple biopsies were done from the margins of the ulcer. Also there was evidence of esophagitis extended from 30-35 cm from the incisors and just with LA grade C reflux esophagitis. The rest of esophagus appeared normal. There were no erosions or ulcerations seen and the patient tolerated the procedure well. IMPRESSION: 1. Superficial distal esophageal 2 cm ulceration just proximal to the GE junction with surrounding friable mucosa and severe LA grade C esophagitis, status post multiple biopsies. 2. Moderate size hiatal hernia 3, evidence of gastric sleeve surgery. RECOMMENDATIONS: The findings of this examination were discussed with the patient as well as his family. He will continue with Protonix 40 mg twice daily and and follow antireflux measures. In the meantime living biopsy results and he'll be seen in office in 2 weeks. We'll plan a repeat upper endoscopy in 6-8 weeks based on his symptoms..
[2020-12-07 14:03] VITALS: BP 122/70; PULSE 77; RESP 18
== END 2020-12-07 14:03 | disposition home or self-care (01) ==
LOC: ORWHC2ENDO 12:06
PROVIDERS: ATTEND Internal Medicine Gastroenterology
DX: L92.8 Other granulomatous disorders of the skin and subcutaneous tissue (principal); K22.10 Ulcer of esophagus without bleeding; K21.00 Gastro-esophageal reflux disease with esophagitis, without bleeding; K44.9 Diaphragmatic hernia without obstruction or gangrene; I10 Essential (primary) hypertension; E78.5 Hyperlipidemia, unspecified; E11.9 Type 2 diabetes mellitus without complications; E07.9 Disorder of thyroid, unspecified; Z79.84 Long term (current) use of oral hypoglycemic drugs; Z79.890 Hormone replacement therapy; Z79.899 Other long term (current) drug therapy
CPT/HCPCS: 88305; 88312; 43239; J2001; J2704

== ENCOUNTER → 2021-06-18 | Outpatient (CLI) | payer MEDICARE ==
--- NOTE | 2021-06-18 10:21 | CT ---
EXAMINATION TYPE: CT lumbar spine wo con DATE OF EXAM: 06/18/2021 9:26 AM COMPARISON: MRI lumbar spine March 31, 2013. HISTORY: Low back pain CT DLP: 1326 mGycm Automated exposure control for dose reduction was used. Unenhanced CT of the lumbar spine was performed. Bone and soft tissue window settings are submitted as well as coronal and sagittal reconstructions. There are 5 lumbar type vertebra redemonstrated. There is partial visualization of fixation hardware in the lower thoracic spine. Posterior interpedicular rods and screws transfix the L3-L5 levels bilat erally corresponding to MRI. There is no slight grade 1 anterolisthesis of L5 measured 7 mm along pos terior vertebral body margin sagittal image 27. Dnjc-az-lizhokyc disc space narrowing L3-L4 level is now present. Mild disc space narrowing L4-L5 level is now seen. Osseous structures are somewhat demin eralized. Bilateral laminectomy defects with spinous process resection at L4 level now seen. Vertebra l body heights maintained. Axial images at T12-L1 and L1-L2 levels appear within normal limits. Axial images at L2-L3 level shows mild broad-based disc bulge mildly effacing intrathecal sac. There is qdqu-bq-rrncxxxp facet arthropathy effacing posterior lateral thecal sac. Axial images at L3-L4 level show artifact from surgical change. Neural foramina show asymmetric mild to moderate left-sided narrowing and marginal spurring sagittal image 30. Axial images at L4-L5 levels with spondylolisthesis. Artifact from surgical change. Hemangioma format ion involving L4 vertebra is redemonstrated. Patent bilateral neural foramina. Posterior decompressio n changes. Axial images at L5-S1 level show muqc-qn-cvnldeju facet arthropathy bilaterally. Patent bilateral chencho ral foramina. Some scattered thin-walled cysts in the right kidney including dominant 7.9 cm thin-walled cyst parti ally exophytic posteriorly from right kidney is partially imaged. IMPRESSION: Postsurgical change L3-L5 level redemonstrated. Interval L4 laminectomy defects and spino us process resection. New slight grade 1 anterolisthesis L4 on L5.
== END | disposition home or self-care (01) ==
LOC: RADCTMAIN 09:03
PROVIDERS: ATTEND Nurse Practitioner
DX: M43.16 Spondylolisthesis, lumbar region (principal); Z98.1 Arthrodesis status
CPT/HCPCS: 72131

== ENCOUNTER → 2021-07-05 | Outpatient (CLI) | payer MEDICARE ==
--- NOTE | 2021-07-06 00:14 | MR ---
EXAMINATION TYPE: MR cspine/tspine wo con DATE OF EXAM: 07/05/2021 COMPARISON: Thoracic spine exam 03/31/2013 HISTORY: Back pain Multiplanar multiecho imaging of the cervical and thoracic spine without contrast. Cervical vertebra have normal alignment. Disc spaces are fairly normal. Cervical spinal cord shows no rmal signal pattern. There is no edema. There is no evidence of any significant cervical disc herniat ion or disc bulging. Brainstem is intact. The skull base is intact. There is no cervical paraspinal m ass. I see no bony destructive process. There is extensive metal artifact obscures the thoracic spine from the level of T4 to the T11 level. The thoracic vertebra appear to have normal alignment. Upper thoracic spine shows no evidence of para spinal mass. The visualized thoracic spinal cord has normal signal pattern. There is no edema. IMPRESSION: Negative MR scan of the cervical spine. No evidence of cervical disc herniation or spinal stenosis. Multilevel thoracic fusion surgery. Limited exam of the thoracic spine. The thoracic spine appears in tact from T1 to T4. The levels from T5 to T11 are significantly obscured by artifact. No fracture naomi ntified.
== END | disposition home or self-care (01) ==
LOC: RADMRIMAIN 08:32
PROVIDERS: ATTEND Neurological Surgery
DX: M54.6 Pain in thoracic spine (principal); Z98.1 Arthrodesis status
CPT/HCPCS: 72141; 72146

== ENCOUNTER 2023-06-15 11:02 | Emergency (ER) | payer MEDICARE ==
--- NOTE | 2023-06-15 11:05 | ED ---
General Adult HPI - General Source: patient, family, RN notes reviewed Mode of arrival: ambulatory Limitations: no limitations <Crow Mcclellan - Last Filed: 06/15/23 11:04> - General Source: patient, family, RN notes reviewed <Joy Pleitez - Last Filed: 06/15/23 15:07> - General Stated complaint: throwing up blood passed out 2 times Time Seen by Provider: 06/15/23 11:04 - History of Present Illness Initial comments: 68-year-old male presents emergency department with family for evaluation of syncopal episodes, vomiting. Patient had an episode yesterday where he passed out again this morning. Patient's blood pressure has been lower than normal. Patient also has been vomiting which included there is some blood within it. Patient contacted PCP who advised him come emergency Department. (Crow Mcclellan) Patient is a 68-year-old male presenting to the ER accompanied by family with a chief complaint of hematemesis and syncopal episodes. Patient has a past medical history significant for lumbar fusions, hiatal hernia and hypertension. Patient states last night he had an episode of vomiting of brown blood. He drank milk of magnesium to see if that would help. Patient states this morning he had 2 syncopal episodes. Patient reports he was going from a laying position and walking into the kitchen when they occurred. Family at bedside states his blood pressure was 65/40 around 9am today. He has recorded his BP through out the night and it was in the low 100s systolic. Patient take lisinopril for hypertension and his last dose was last night. Patient does state he had a similar episode of vomiting bright red blood about 2 years ago and they had to do surgery. Denies blood thinner use. Patient denies shortness of breath, constipation, melena. He does report diarrhea but contributes that to the milk of magnesium. (Joy Pleitez) - Related Data Home Medications Medication Instructions Recorded Confirmed Tamsulosin HCl [Flomax] 0.8 mg PO DAILY 07/13/14 06/15/23 Canagliflozin [Invokana] 100 mg PO AC-BRKFST 10/29/20 06/15/23 DULoxetine HCL [Cymbalta] 60 mg PO BID 10/29/20 06/15/23 Levothyroxine Sodium 200 mcg PO DAILY 10/29/20 06/15/23 Testosterone Cypionate 120 mg IM FR 10/29/20 06/15/23 [Depo-Testosterone] ALPRAZolam [Xanax] 0.25 mg PO BID 11/29/20 06/15/23 Atorvastatin [Lipitor] 10 mg PO DAILY 06/15/23 06/15/23 Daridorexant HCl [Quviviq] 50 mg PO DAILY 06/15/23 06/15/23 Ferrous Sulfate - Slow Fe 137 Mg 137 mg PO DAILY 06/15/23 06/15/23 (45 Mg Iron) HYDROcodone/APAP 10-325MG [[place] 1 tab PO 5XD PRN 06/15/23 06/15/23 10-325] Ketorolac [Toradol] 10 mg PO BID PRN 06/15/23 06/15/23 Liraglutide [Victoza 3-Silvano] 1.8 mg SQ DAILY 06/15/23 06/15/23 Lurasidone [Latuda] 40 mg PO DAILY 06/15/23 06/15/23 Pantoprazole [Protonix] 40 mg PO DAILY 06/15/23 06/15/23 Potassium Chloride ER [K-Dur 20] 100 meq PO DAILY 06/15/23 06/15/23 Sildenafil Citrate [Viagra] 100 mg PO DAILY PRN 06/15/23 06/15/23 lisinopriL [Zestril] 2.5 mg PO DAILY 06/15/23 06/15/23 metOLazone [Zaroxolyn] 5 mg PO DAILY 06/15/23 06/15/23 modafiniL [Provigil] 200 mg PO DAILY 06/15/23 06/15/23 Allergies Allergy/AdvReac Type Severity Reaction Status Date / Time No Known Allergies Allergy Verified 06/15/23 13:29 Review of Systems ROS Other: All systems not noted in ROS Statement are negative. <Crow Mcclellan - Last Filed: 06/15/23 11:04> ROS Other: All systems not noted in ROS Statement are negative. <Joy Pleitez - Last Filed: 06/15/23 15:07> ROS Statement: Those systems with pertinent positive or pertinent negative responses have been documented in the HPI. Past Medical History Past Medical History: GERD/Reflux, GI Bleed, Hypertension, Osteoarthritis (OA), Prostate Disorder Additional Past Medical History / Comment(s): Pt recently admitted to [facility] on 10/29/20 upper GI bleed/ulcer/NSAID use/hypotension/acute blood loss anemia/tachycardia. Other hx: 1998 CHI/caused mini strokes per spouse/chronic headaches, falls and recent fall with reinjury to L shoulder ( needs surgery soon) and headaches since have been severe, chronic lower back pain, NIDDM type II, BPH, hypothyroid, hiatal hernia, pt states since recent EGD he has had pain in "esophagus" and spots now on tongue, colon polyps/diverticular disease History of Any Multi-Drug Resistant Organisms: None Reported Past Surgical History: Back Surgery, Bariatric Surgery, Joint Replacement, Orthopedic Surgery Additional Past Surgical History / Comment(s): 10/29/20 EGD with epinephrine injection to bleeding ulcer, colonoscopies/polypectomies, back fusion/hardware, L ankle ORIF, total L hip arthroplasty, L knee arthroscopy, L shoulder arthrodesis, pain clinic procedures, lap band with removal, gastric sleeve. Past Anesthesia/Blood Transfusion Reactions: No Reported Reaction Smoking Status: Former smoker - Past Family History Father Additional Family Medical History / Comment(s): HEART PROBLEMS AT AGE 58. Mother Family Medical History: No Reported History Additional Family Medical History / Comment(s): AT AGE 82. <Crow Mcclellan M - Last Filed: 06/15/23 11:04> General Exam <Crow Mcclellan M - Last Filed: 06/15/23 11:04> General appearance: alert, in no apparent distress ENT exam: Present: normal exam, mucous membranes moist Neck exam: Present: normal inspection. Absent: tenderness, meningismus, lymphadenopathy Respiratory exam: Present: normal lung sounds bilaterally. Absent: respiratory distress, wheezes, rales, rhonchi, stridor Cardiovascular Exam: Present: regular rate, normal rhythm, normal heart sounds. Absent: systolic murmur, diastolic murmur, rubs, gallop, clicks GI/Abdominal exam: Present: soft, tenderness (LUQ), normal bowel sounds. Absent: distended, guarding, rebound, rigid Extremities exam: Present: normal inspection, full ROM, normal capillary refill. Absent: tenderness, pedal edema, joint swelling, calf tenderness Neurological exam: Present: alert, oriented X3, CN II-XII intact Psychiatric exam: Present: normal affect, normal mood Skin exam: Present: warm, dry, intact, normal color. Absent: rash <Joy Pleitez - Last Filed: 06/15/23 15:07> - General Exam Comments Initial Comments: Visual Physical Exam Vital signs reviewed General: Well-appearing, nontoxic, no acute distress. Head: Normocephalic, atraumatic Eyes: PERRLA, EOMI ENT: Airway patent Chest: Nonlabored breathing Skin: No visual rash, normal skin tone Neuro: Alert and oriented 3 Musculoskeletal: No gross abnormalities (Crow Mcclellan) Course Vital Signs 06/15/23 06/15/23 06/15/23 11:28 12:02 13:00 Temperature 97.3 F L Pulse Rate 83 76 Respiratory 16 18 Rate Blood Pressure 85/59 94/64 121/91 O2 Sat by Pulse 97 Oximetry Medical Decision Making <Crow Mcclellan - Last Filed: 06/15/23 11:04> - Lab Data Result diagrams: 06/15/23 12:10 06/15/23 12:10 - EKG Data -: EKG Interpreted by Me - Radiology Data Radiology results: report reviewed, image reviewed <Joy Pleitez - Last Filed: 06/15/23 15:07> - Medical Decision Making I completed the quick note portion of this chart signed Crow Mcclellan PA-C (Crow Mcclellan) Was pt. sent in by a medical professional or institution ([facility], POLICE SHIFT COMMANDER, urgent care, hospital, or skilled nursing...) When possible be specific @ -No Did you speak to anyone other than the patient for history (EMS, parent, family, police, friend...)? What history was obtained from this source @ -Family Did you review nursing and triage notes (agree or disagree)? Why? @ -I reviewed and agree with nursing and triage notes Were old charts reviewed (outside hosp., previous admission, EMS record, old EKG, old radiological studies, urgent care reports/EKG's, skilled nursing records)? Report findings @ -Yes, I reviewed old charts from 2020 for similar complaint. Differential Diagnosis (chest pain, altered mental status, abdominal pain women, abdominal pain men, vaginal bleeding, weakness, fever, dyspnea, syncope, headache, dizziness, GI bleed, back pain, seizure, CVA, palpatations, mental h ealth, musculoskeletal)? @ -Differential Abdominal Pain Men:Appendicitis, cholecystitis, diverticulosis, ischemic bowel, pancreatitis, hepatitis, UTI, gastroenteritis, AAA, incarc erated hernia, bowel obstruction, constipation, inflammatory bowel, hepatitis, peptic ulcer disease, splenic infarction, perforated viscus, testicular torsion, this is not meant to be an all-inclusive list EKG interpreted by me (3pts min.). @ -As above X-rays interpreted by me (1pt min.). @ -Chest x-ray shows no acute cardiopulmonary processes. COPD changes noted. CT interpreted by me (1pt min.). @ -CT abdomen and pelvis shows a nonobstructive bowel gas pattern. There is possible diarrhea and mild, uncomplicated colitis. Surgical changes from gastric sleeve are present. Persistent hiatal hernia with abnormal wall thickening of the distal esophagus. Consider direct visualization to further evaluate. U/S interpreted by me (1pt. min.). @ -None done What testing was considered but not performed or refused? (CT, X-rays, U/S, labs)? Why? @ -None What meds were considered but not given or refused? Why? @ -None Did you discuss the management of the patient with other professionals (professionals i.e. , PA, POLICE SHIFT COMMANDER, lab, RT, psych nurse, oncology social work, district supervisor, teacher, navigation officer, catalytic case operator)? Give summary @ -No Was smoking cessation discussed for >3mins.? @ -No Was critical care preformed (if so, how long)? @ -No Were there social determinants of health that impacted care today? How? (Homelessness, low income, unemployed, alcoholism, drug addiction, transportation, low edu. Level, literacy, decrease access to med. care, half-way, rehab)? @ -No Was there de-escalation of care discussed even if they declined (Discuss DNR or withdrawal of care, Hospice)? DNR status @ -No What co-morbidities impacted this encounter? (DM, HTN, Smoking, COPD, CAD, Cancer, CVA, ARF, Chemo, Hep., AIDS, mental health diagnosis, sleep apnea, morbid obesity)? @ -None Was patient admitted / discharged? Hospital course, mention meds given and route, prescriptions, significant lab abnormalities, going to OR and other pertinent info. @ -Left Against Medical Advise. Patient is 68-year-old male presenting to the ER with a chief complaint of hematemesis and syncopal episodes. Patient's vital signs upon arrival were 85/59 with a heart rate of 83. Patient's physical exam was significant for left upper quadrant tenderness. Labs obtained in the ER were unremarkable except for a magnesium of 3.1. Chest x-ray shows no acute cardiopulmonary process. There are COPD changes noted as well. Patient underwent a CT abdomen and pelvis with IV and oral contrast which shows a nonobstructive gas bowel pattern. There is possible diarrhea and mild uncommon acute colitis. Surgical changes from gastric sleeve are redemonstrated from prior CTs. Persistent hiatal hernia with abnormal wall thickening of the distal esophagus is present. Consider direct visualization and to further evaluate. Patient received 1 L of IV fluids for hydration. Patient's blood pressure did increase to 94/64 with heart rate of 74. I discussed with the patient that I would like him admitted for further workup of syncopal episodes and hypotension. I also stated that I would like GI to see him in patient for possible endoscopy for further evaluation of hematemesis. I also discussed at length with the patient my worries of his hypotension and syncopal episodes. Patient stated that he would like to go home because of chronic back pain and that he cannot get comfortable in hospital beds. Patient expressed understanding of medical concerns and conditions and was capable of medical decisions. Family at bedside encouraged patient to stay for further care. I encouraged patient to stay for observation and further workup but patient declined and will leave against medical advise. When patient left his blood pressure was 121/91 and HR 101. I advised patient to further monitor blood pressure and return to the ER if any symptoms worsen or change. I also stated he should follow up with his PCP and GI doctor in the next 1-2 days. Undiagnosed new problem with uncertain prognosis? @ -No Drug Therapy requiring intensive monitoring for toxicity (Heparin, Nitro, I nsulin, Cardizem)? @ -No Were any procedures done? @ -No Diagnosis/symptom? @ -Syncope/hypotension/hematemesis/hypermagnesemia Acute, or Chronic, or Acute on Chronic? @ -Acute Uncomplicated (without systemic symptoms) or Complicated (systemic symptoms)? @ -Complicated Side effects of treatment? @ -No Exacerbation, Progression, or Severe Exacerbation? @ -No Poses a threat to life or bodily function? How? (Chest pain, [place], NC, pneumonia, PE, COPD, DKA, ARF, appy, cholecystitis, CVA, Diverticulitis, Homicidal, Suicidal, threat to staff... and all critical care pts) @ -Yes (Joy Pleitez) - Lab Data Lab Results 06/15/23 06/15/23 06/15/23 Range/Units 12:10 12:10 12:10 WBC 9.7 (3.8-10.6) k/uL RBC 5.60 (4.30-5.90) m/uL Hgb 14.6 (13.0-17.5) gm/dL Hct 47.4 (39.0-53.0) % MCV 84.6 (80.0-100.0) fL MCH 26.1 (25.0-35.0) pg MCHC 30.8 L (31.0-37.0) g/dL RDW 18.5 H (11.5-15.5) % Plt Count 259 (150-450) k/uL MPV 9.3 Neutrophils % 79 % Lymphocytes % 8 % Monocytes % 7 % Eosinophils % 4 % Basophils % 0 % Neutrophils # 7.7 (1.3-7.7) k/uL Lymphocytes # 0.8 L (1.0-4.8) k/uL Monocytes # 0.7 (0-1.0) k/uL Eosinophils # 0.4 (0-0.7) k/uL Basophils # 0.0 (0-0.2) k/uL Hypochromasia Marked Anisocytosis Slight Microcytosis Slight PT 9.9 L (10.0-12.5) sec INR 0.9 (<1.2) APTT 25.9 (22.0-30.0) sec Sodium 136 L (137-145) mmol/L Potassium 4.4 (3.5-5.1) mmol/L Chloride 94 L (98-107) mmol/L Carbon Dioxide 33 H (22-30) mmol/L Anion Gap 9 mmol/L BUN 20 (9-20) mg/dL Creatinine 1.22 (0.66-1.25) mg/dL Est GFR (CKD-EPI)AfAm 70 (>60 ml/min/1.73 sqM) Est GFR (CKD-EPI)NonAf 60 (>60 ml/min/1.73 sqM) Glucose 87 (74-99) mg/dL Calcium 9.5 (8.4-10.2) mg/dL Magnesium 3.1 H (1.6-2.3) mg/dL Total Bilirubin 0.4 (0.2-1.3) mg/dL AST 22 (17-59) U/L ALT 17 (4-49) U/L Alkaline Phosphatase 71 (38-126) U/L Troponin I (0.000-0.034) ng/mL Total Protein 6.7 (6.3-8.2) g/dL Albumin 4.0 (3.5-5.0) g/dL 06/15/23 Range/Units 12:10 WBC (3.8-10.6) k/uL RBC (4.30-5.90) m/uL Hgb (13.0-17.5) gm/dL Hct (39.0-53.0) % MCV (80.0-100.0) fL MCH (25.0-35.0) pg MCHC (31.0-37.0) g/dL RDW (11.5-15.5) % Plt Count (150-450) k/uL MPV Neutrophils % % Lymphocytes % % Monocytes % % Eosinophils % % Basophils % % Neutrophils # (1.3-7.7) k/uL Lymphocytes # (1.0-4.8) k/uL Monocytes # (0-1.0) k/uL Eosinophils # (0-0.7) k/uL Basophils # (0-0.2) k/uL Hypochromasia Anisocytosis Microcytosis PT (10.0-12.5) sec INR (<1.2) APTT (22.0-30.0) sec Sodium (137-145) mmol/L Potassium (3.5-5.1) mmol/L Chloride (98-107) mmol/L Carbon Dioxide (22-30) mmol/L Anion Gap mmol/L BUN (9-20) mg/dL Creatinine (0.66-1.25) mg/dL Est GFR (CKD-EPI)AfAm (>60 ml/min/1.73 sqM) Est GFR (CKD-EPI)NonAf (>60 ml/min/1.73 sqM) Glucose (74-99) mg/dL Calcium (8.4-10.2) mg/dL Magnesium (1.6-2.3) mg/dL Total Bilirubin (0.2-1.3) mg/dL AST (17-59) U/L ALT (4-49) U/L Alkaline Phosphatase (38-126) U/L Troponin I <0.012 (0.000-0.034) ng/mL Total Protein (6.3-8.2) g/dL Albumin (3.5-5.0) g/dL - EKG Data EKG Comments: EKG taken at 12:56 shows a normal sinus rhythm with no acute ST segment or T- wave abnormalities noted. Ventricular rate 73, WI interval 164, QRS duration 76, QT/QTC 361/387. (Joy Pleitez) Disposition <Crow Mcclellan - Last Filed: 06/15/23 11:04> Is patient prescribed a controlled substance at d/c from ED?: No Time of Disposition: 14:21 <Joy Pleitez - Last Filed: 06/15/23 15:07> Clinical Impression: Syncope, Hematemesis Disposition: LEFT AGAINST MEDICAL ADVICE Instructions (If sedation given, give patient instructions): Syncope (ED) Additional Instructions: Please continue to monitor blood pressures at home. When you are feeling lightheaded or dizzy please take your blood pressure and record it. I advise you to follow up with your primary care physician and/or mercerizing range feeder for further evaluation of syncopal episodes and low blood pressure. Please make sure you are drinking water. Please follow-up with Dr. Funez in the next 1-2 days. Please continue to take your Protonix as prescribed. Please return to the ER for any continued or worsening symptoms. Referrals: Sara Tripp MD [Primary Care Provider] - 1-2 days Aruna Funez MD [STAFF PHYSICIAN] - 1-2 days
--- NOTE | 2023-06-15 11:51 | XR ---
EXAMINATION TYPE: XR chest 2V DATE OF EXAM: 06/15/2023 11:38 AM CLINICAL INDICATION:Male, 68 years old with history of syncope; COMPARISON: Chest radiographs from 11/29/2020 TECHNIQUE: XR chest 2V Frontal and lateral views of the chest. FINDINGS: Lungs/Pleura: There is flattening of the diaphragm with increased lucency of the lungs. No evidence o f pneumothorax, pleural effusion or focal consolidation. Pulmonary vascularity: Unremarkable. Heart/mediastinum: Cardiomediastinal silhouette is unremarkable. Musculoskeletal: No acute osseous pathology. Multilevel degeneration changes with fixation hardware t hroughout the spine. Hardware appears intact. Left shoulder arthroplasty appears intact. IMPRESSION: 1. No acute cardiopulmonary disease process. 2. COPD changes.
[2023-06-15 11:58] VITALS: TEMP 97.3
[2023-06-15] MEDS ORDERED: SODIUM CHLORIDE 0.9% 1,000 ML IV STA (12:05)
[2023-06-15] MEDS ORDERED: IOPAMIDOL CONTRAST (ORAL USE) VIAL PO PRN (12:10)
[2023-06-15 12:21] LABS: Anisocytosis Slight; Basophils % (A) 0 %; Eosinophils # (A) 0.4 k/uL (0-0.7); Eosinophils % (A) 4 %; HCT 47.4 % (39.0-53.0); HGB 14.6 gm/dL (13.0-17.5); Hypochromasia Marked; Lymphocytes # (A) 0.8 k/uL (1.0-4.8); Lymphocytes % (A) 8 %; MCH 26.1 pg (25.0-35.0); MCHC 30.8 g/dL (31.0-37.0); MCV 84.6 fL (80.0-100.0); Mean Platelet Volume 9.3; Microcytosis Slight; Monocytes # (A) 0.7 k/uL (0-1.0); Monocytes % (A) 7 %; Neutrophils # (A) 7.7 k/uL (1.3-7.7); Neutrophils % (A) 79 %; Platelet Count 259 k/uL (150-450); RDW 18.5 % (11.5-15.5); WBC 9.7 k/uL (3.8-10.6)
[2023-06-15 12:28] VITALS: PULSE 76; RESP 18
[2023-06-15 12:37] LABS: ALT 17 U/L (4-49); AST 22 U/L (17-59); African American GFR (CKD) 70 (>60 ml/min/1.73 sqM); Alkaline Phosphatase 71 U/L (38-126); Anion Gap 9 mmol/L; Blood Urea Nitrogen 20 mg/dL (9-20); Calcium 9.5 mg/dL (8.4-10.2); Carbon Dioxide 33 mmol/L (22-30); Chloride 94 mmol/L (98-107); Glucose 87 mg/dL (74-99); Magnesium 3.1 mg/dL (1.6-2.3); Non-African American GFR(CKD) 60 (>60 ml/min/1.73 sqM); Potassium 4.4 mmol/L (3.5-5.1); Sodium 136 mmol/L (137-145); Total Bilirubin 0.4 mg/dL (0.2-1.3); Total Protein 6.7 g/dL (6.3-8.2)
[2023-06-15 12:58] LABS: INR 0.9 (<1.2); Partial Thromboplastin Time 25.9 sec (22.0-30.0); Prothrombin Time 9.9 sec (10.0-12.5)
--- NOTE | 2023-06-15 13:30 | CT ---
EXAMINATION TYPE: CT abdomen pelvis w con DATE OF EXAM: 06/15/2023 COMPARISON: Prior CT abdomen and pelvis October 29, 2020 HISTORY: vomiting blood and pain. CT DLP: 1472.7 mGycm, Automated Exposure Control for Dose Reduction was Utilized. CONTRAST: CT scan of the abdomen and pelvis is performed with oral and with IV Contrast, patient injected with 80 mL of Isovue 300. FINDINGS: LUNG BASES: No significant abnormality is appreciated. LIVER/GB: There is heterogeneously hypodense consistent with fatty infiltrative hepatocellular diseas e. PANCREAS: No significant abnormality is seen. SPLEEN: No significant abnormality is seen. ADRENALS: No significant abnormality is seen. Kidneys: Cluster of thin-walled cyst posteriorly upper pole of the right kidney are redemonstrated. BOWEL: Oral contrast does not reach the distal small bowel loop level in the pelvis but there is no a bnormal small or large bowel dilatation seen. Fluid-filled colon with air-fluid levels is seen. This could reflect product of diarrhea and/or mild uncomplicated colitis. Surgical changes from gastric sl eeve are redemonstrated. Persistent hiatal hernia with moderate to severe wall thickening in the dist al esophagus. PROSTATE/SEMINAL VESICLES: No gross abnormality seen. LYMPH NODES: No greater than 1cm abdominal or pelvic lymph nodes are appreciated. OSSEOUS STRUCTURES: Metallic artifact from left hip arthroplasty causes streak artifact making evalua tion of pelvic structures slightly suboptimal. Long segment surgical change to the thoracic spine is partially imaged. Surgical change at L3-L5 levels in the lumbar spine is redemonstrated. OTHER: Persistent small sized fat-containing bilateral inguinal hernias. IMPRESSION: Overall nonspecific but felt to be nonobstructive bowel gas pattern. Possible diarrhea an d/or mild uncomplicated colitis. Correlate clinically. Surgical changes from gastric sleeve redemonst rated. Persistent hiatal hernia with abnormal wall thickening in the distal esophagus. Correlate clin ically for esophagitis. Consider direct visualization to further evaluate.
[2023-06-15 15:31] VITALS: BP 110/74
== END 2023-06-15 15:08 | disposition left against medical advice (07) ==
LOC: EC 11:02
DX: R55 Syncope and collapse (principal); K92.0 Hematemesis; E11.9 Type 2 diabetes mellitus without complications; I10 Essential (primary) hypertension; J44.9 Chronic obstructive pulmonary disease, unspecified; K21.9 Gastro-esophageal reflux disease without esophagitis; E03.9 Hypothyroidism, unspecified; M19.90 Unspecified osteoarthritis, unspecified site; Z86.73 Personal history of transient ischemic attack (TIA), and cerebral infarction without residual deficits; Z87.891 Personal history of nicotine dependence; Z79.890 Hormone replacement therapy; Z79.85 Long-term (current) use of injectable non-insulin antidiabetic drugs; Z79.899 Other long term (current) drug therapy; Z53.29 Procedure and treatment not carried out because of patient's decision for other reasons
CPT/HCPCS: 36415; 93005; 80053; 83735; 84484; 85025; 85610; 85730; 71046; 74177; 99285; 96360; Q9967

== ENCOUNTER 2023-08-12 07:09 | Day surgery (SDC) | payer MEDICARE ==
[~2023-08-12 07:09] MED LIST changes: +HYDROmorphone 0.5 MG/0.5 ML SYRINGE IVP PRN
[2023-08-12 07:57] LABS: Glucose,Whole Blood 100 mg/dL (70-110)
[2023-08-12 08:12] VITALS: RESP 14; TEMP 98.3
[2023-08-12] MEDS ORDERED: PROPOFOL 10 MG/ML 20 ML VIAL IV ONE (08:46)
[2023-08-12] MEDS ORDERED: LIDOCAINE 1% INJ 10MG/ML (20 ML MDV) ONE (08:46)
--- NOTE | 2023-08-12 08:58 | P.PCN ---
Date of Procedure: 08/12/23 Procedure(s) Performed: BRIEF HISTORY: Patient is a 68-year-old, pleasant, white female scheduled for an upper endoscopy as a part of evaluation of 2 episodes of hematemesis about a week ago.. He went to the emergency room and subsequently went home. Had prior history of GI bleed in 2020 and upper endoscopy done at that time revealed distal esophageal ulceration. PROCEDURE PERFORMED: Esophagogastroduodenoscopy with biopsy. PREOPERATIVE DIAGNOSIS: Acute upper GI bleed. IV sedation per anesthesia. PROCEDURE: After informed consent was obtained, the patient was brought into the endoscopy unit. IV sedation was administered by Anesthesia under continuous monitoring. Initially the Olympus GIF-140 video endoscope was inserted into the mouth. Esophagus intubated without any difficulty. It was gradually advanced into the stomach and duodenum and carefully examined. The bulb and the second part of the duodenum appeared normal. The scope at this time was withdrawn to the stomach, adequately insufflated with air, and upon careful examination, mucosa of the antrum, had gastritis and 2 small superficial antral ulcers that were biopsied. There was evidence of gastric sleeve surgery and the mucosa in the gastric sleeve appeared slightly inflamed consistent with gastritis. The scope was then withdrawn into the esophagus. small hiatal hernia noted. The GE junction was located at 35 cm from the incisors. there was a 2 cm deep ulceration at the GE junction and biopsies were done from this area. Also there were linear erosions and ulcerations noted in the distal esophagus extending from 35-40 cm from the incisors consistent with severe LA 80 reflux esophagitis. No obvious esophageal varices identified. The rest of the esophagus appeared normal. The patient tolerated the procedure well. IMPRESSION: 1. 2 cm deep ulceration at the GE junction status post biopsy. 2. Linear erosions with ulcerations involving the distal esophagus extended from 35-40 cm from the incisors consistent with severe LA grade D reflux esophagitis 3. Evidence of gastric sleeve surgery 4. Mild antral gastritis and 2 small superficial antral ulcers. 5. No evidence of esophageal varices RECOMMENDATIONS: The findings of this examination were discussed with the patient as well as his family.. He was advised to increase her Protonix 40 mg twice daily and follow antrum reflux measures. Follow up in office in 3 months. We'll plan a repeat upper endoscopy in 3 months to ensure ulcer healing.
[2023-08-12 09:30] VITALS: BP 135/91; PULSE 91
== END 2023-08-12 10:03 | disposition home or self-care (01) ==
LOC: ORWHC2ENDO 07:09
PROVIDERS: ATTEND Internal Medicine Gastroenterology
DX: K29.50 Unspecified chronic gastritis without bleeding (principal); K21.00 Gastro-esophageal reflux disease with esophagitis, without bleeding; K22.11 Ulcer of esophagus with bleeding; K25.4 Chronic or unspecified gastric ulcer with hemorrhage; I10 Essential (primary) hypertension; E11.9 Type 2 diabetes mellitus without complications; E07.9 Disorder of thyroid, unspecified; N28.9 Disorder of kidney and ureter, unspecified; M19.90 Unspecified osteoarthritis, unspecified site; F41.9 Anxiety disorder, unspecified; F32.A Depression, unspecified; Z79.4 Long term (current) use of insulin; Z79.84 Long term (current) use of oral hypoglycemic drugs; Z79.890 Hormone replacement therapy; Z79.899 Other long term (current) drug therapy; Z96.642 Presence of left artificial hip joint; Z98.890 Other specified postprocedural states; Z86.73 Personal history of transient ischemic attack (TIA), and cerebral infarction without residual deficits; Z98.84 Bariatric surgery status
CPT/HCPCS: 88305; 88312; 88342; 43239; J2001; J2704

== ENCOUNTER → 2024-07-04 | Outpatient (CLI) | payer MEDICARE ==
--- NOTE | 2024-07-04 18:00 | CT ---
EXAMINATION TYPE: CT thor lumbar spine wo con DATE OF EXAM: 07/04/2024 4:04 PM COMPARISON: 06/18/2021 CLINICAL INDICATION: Male, 69 years old with history of M96.0 PSEUDARTHROSIS AFTER FUSION; Pseudarthr osis after fusion. Severe back pain. Pt states they might remove his hardware. TECHNIQUE: Axial images of the thoracic and lumbar spine were obtained without contrast. Coronal and sagittal reformats were performed. CT Contrast: Contrast used: mL of , none. Oral contrast used: none. CT DLP: 2281.1 mGycm, Automated exposure control for dose reduction was used. FINDINGS: Thoracic: The thoracic vertebral bodies have preserved heights and alignment. Intervertebral discs and osseou s structures have normal appearance. I do not see any evidence of extradural defects nor significant spinal canal narrowing at any thoraci c vertebral body level. Lumbar: Alignment: There are 5 lumbar type vertebral bodies with postsurgical alignment. Postsurgical changes the spine which are extensive. Hardware appears intact. Multilevel degeneration with joint space narrowing osteophyte formation and facet joint arthropathy and disc space narrowing present. No evidence of fracture is identified. No evidence for significant spinal canal stenosis. Facet joint arthropathy at multiple levels with at least mild and mild to moderate neural foraminal stenosis worse at L3-L4 with moderate bilateral chencho ral foraminal stenosis and moderate T10-T11 left neural foraminal stenosis. Additionally There is trevon e limitation due to streak artifact at multiple levels. Comparisons surrounding lucency along the rig ht L5 pedicle screw and to lesser extent the left L5 pedicle screw. . Degeneration changes of the sacroiliac joints with osteophyte formation bilaterally. Other: Moderate hiatal hernia with esophageal wall thickening IMPRESSION: 1. No evidence for spinal fracture. 2. Fixation hardware throughout the spine majority of which appears intact. There our 2 screws at L5 pedicle which have some lucency around them suggesting worsening right greater than left. Findings s imilar back to 06/18/2021 CT. 3. Mild to moderate degeneration changes throughout the spine from stenosis worse at L3-L4 and T10-T 11. 4. Correlate hiatal hernia with esophageal wall thickening correlate for esophagitis. [facility], , 07/04/2024 5:58 PM
== END | disposition home or self-care (01) ==
LOC: RADCTMAIN 15:29
PROVIDERS: ATTEND Orthopaedic Surgery
DX: M48.04 Spinal stenosis, thoracic region (principal); M96.0 Pseudarthrosis after fusion or arthrodesis; K44.9 Diaphragmatic hernia without obstruction or gangrene
CPT/HCPCS: 72128; 72131